=== PATIENT | male | born 1945 | race Caucasian/White ===

== ENCOUNTER 2016-11-08 15:19 | Inpatient (IN) | payer MEDICARE, BC, OTHER ==
[~2016-11-08 15:19] MED LIST: GLYCOPYRROLATE INJ 0.4 MG/2 ML VIAL ONE; KETOROLAC TROMETHAMINE 60 MG/2 ML SDV ONE; LIDOCAINE 2% INJ-PF (20 MG/ML) 10 ML AMPUL ONE; METOCLOPRAMIDE HCL INJ/PF 10 MG/2 ML SDV ONE; ONDANSETRON HCL INJ/PF 4 MG/2 ML SDV ONE; SUCCINYLCHOLINE CHLORIDE INJ 200 MG/10 ML VIAL ONE
[2016-11-08] MEDS ORDERED: OXYCODONE-ACETAMINOPHEN 5-325 MG TABLET PO ONE (15:38)
--- NOTE | 2016-11-08 15:38 | ER Document Report ---
ED Medical Screen (RME) - General Stated Complaint: LEG INJURY Mode of Arrival: Wheelchair Information source: Patient Notes: Patient presents to the emergency department with right lower leg pain. Reports heavy tire fell off the back of his camper and hit his leg. Walked from camper to house to car. Patient has obvious hematoma. Patient is a diabetic. He is not on anticoagulants. He is complaining of severe pain. I have greeted and performed a rapid initial assessment of this patient. A comprehensive ED assessment and evaluation of the patient, analysis of test results and completion of the medical decision making process will be conducted by additional ED providers. TRAVEL OUTSIDE OF THE [place] IN LAST 30 DAYS: No
[2016-11-08 18:17] LABS: ABSOLUTE EOSINOPHILS # (AUTO) 0.1 10^3/uL (0.0-0.6); ABSOLUTE LYMPHOCYTES (AUTO) 1.1 10^3/uL (0.5-4.7); ABSOLUTE MONOCYTES (AUTO) 0.6 10^3/uL (0.1-1.4); BASOPHILS % (AUTO) 0.4 % (0-2); EOSINOPHILS % (AUTO) 0.5 % (0-6); HEMATOCRIT 38.4 % (37.9-51.0); HEMOGLOBIN 13.1 g/dL (13.5-17.0); HGB HCT DIFFERENCE 0.9; LYMPHOCYTES % (AUTO) 10.9 % (13-45); MEAN CORPUSCULAR HEMOGLOBIN 31.7 pg (27.0-33.4); MEAN CORPUSCULAR HGB CONC 34.1 g/dL (32.0-36.0); MEAN CORPUSCULAR VOLUME 93 fl (80-97); MONOCYTES % (AUTO) 5.9 % (3-13); RED BLOOD COUNT 4.12 10^6/uL (4.35-5.55); RED CELL DISTRIBUTION WIDTH 13.8 % (11.5-14.0); SEGMENTED NEUTROPHILS % (AUTO) 82.3 % (42-78); WHITE BLOOD COUNT 9.7 10^3/uL (4.0-10.5)
[2016-11-08 18:20] LABS: PARTIAL THROMBOPLASTIN TIME 29.7 SEC (23.5-35.8); PROTHROMBIN TIME 13.1 SEC (11.4-15.4)
[2016-11-08] MEDS ORDERED: MORPHINE SULFATE 10 MG/ML INJ IV ONE (18:29)
[2016-11-08] MEDS ORDERED: ONDANSETRON HCL INJ/PF 4 MG/2 ML SDV IV ONE (18:29)
[2016-11-08] MEDS ORDERED: ONDANSETRON HCL INJ/PF 4 MG/2 ML SDV ONE (18:30)
[2016-11-08] MEDS ORDERED: MORPHINE SULFATE 10 MG/ML INJ ONE (18:31)
[2016-11-08 18:34] LABS: ALANINE AMINOTRANSFERASE 27 U/L (21-72); ALBUMIN 3.7 g/dL (3.5-5.0); ALKALINE PHOSPHATASE 86 U/L (38-126); ANION GAP 10 (5-19); ASPARTATE AMINO TRANSFERASE 22 U/L (17-59); BILIRUBIN,DIRECT 0.3 mg/dL (0.0-0.4); BILIRUBIN,TOTAL 0.5 mg/dL (0.2-1.3); BLOOD UREA NITROGEN 27 mg/dL (7-20); CALCIUM 9.2 mg/dL (8.4-10.2); CARBON DIOXIDE 27 mmol/L (22-30); CHLORIDE 108 mmol/L (98-107); CREATININE RESULT 1.36 mg/dL (0.52-1.25); GLUCOSE 144 mg/dL (75-110); POTASSIUM 4.1 mmol/L (3.6-5.0); SODIUM 144.7 mmol/L (137-145); TOTAL PROTEIN 6.2 g/dL (6.3-8.2)
[2016-11-08] MEDS ORDERED: BUPIVACAINE HCL 0.5%-EPI 1:200000 INJ/PF 30 ML VIAL ONE (18:53)
--- NOTE | 2016-11-08 19:00 | ER Document Report ---
ED General - General Chief Complaint: Leg Pain Stated Complaint: LEG INJURY Time seen by provider: 18:56 Mode of Arrival: Wheelchair Information source: Patient Notes: This is a 71-year-old man that presents to the emergency room with acute right leg injury at 2 PM today. The patient states he was working on his camper and attired dislodged and came down on his right lower leg. The patient states since that time, his had increasing pain, swelling and blistering to the medial aspect of the leg. TRAVEL OUTSIDE OF THE [place] IN LAST 30 DAYS: No - HPI Onset: Just prior to arrival Onset/Duration: Sudden Quality of pain: Dull Severity: Severe Pain Level: 5 Associated symptoms: denies: Chills, Fever Exacerbated by: Movement, Other Relieved by: Denies - Touching Similar symptoms previously: No Recently seen / treated by doctor: Yes - Related Data Allergies/Adverse Reactions: No Known Allergies Allergy (Unverified 11/08/16 15:36) Past Medical History - General Information source: Patient - Social History Smoking Status: Never Smoker Cigarette use (# per day): No Chew tobacco use (# tins/day): No Frequency of alcohol use: Social Drug Abuse: None Lives with: Family Family History: Reviewed & Not Pertinent Patient has suicidal ideation: No Patient has homicidal ideation: No - Past Medical History Cardiac Medical History: Reports: Hx Hypercholesterolemia, Hx Hypertension, Hx Peripheral Vascular Disease Pulmonary Medical History: Reports: None EENT Medical History: Reports: None Neurological Medical History: Reports: None Endocrine Medical History: Reports: Hx Diabetes Mellitus Type 2 - Insulin requiring Renal/ Medical History: Reports: None. Denies: Hx Peritoneal Dialysis Malignancy Medical History: Reports None GI Medical History: Reports: None Musculoskeltal Medical History: Reports None Skin Medical History: Reports None Psychiatric Medical History: Reports: None Traumatic Medical History: Reports: None Infectious Medical History: Reports: None Surgical Hx: Other - Noncontributory Review of Systems - Review of Systems Constitutional: denies: Chills, Fever EENT: No symptoms reported Cardiovascular: No symptoms reported Respiratory: No symptoms reported Gastrointestinal: No symptoms reported Genitourinary: No symptoms reported Male Genitourinary: No symptoms reported Musculoskeletal: See HPI Skin: No symptoms reported Hematologic/Lymphatic: No symptoms reported Neurological/Psychological: No symptoms reported Physical Exam - Vital signs Vitals: Temp Pulse Resp BP Pulse Ox 97.7 F 87 20 176/100 H 98 11/08/16 15:29 11/08/16 15:29 11/08/16 15:29 11/08/16 15:29 11/08/16 15:29 Notes: Physical exam: GENERAL: 71-year-old man, alert and oriented 3, appears in distress. HEAD: Atraumatic, normocephalic. EYES: Pupils equal round and reactive to light, extraocular movements intact, sclera anicteric, conjunctiva are normal. ENT: TMs normal, nares patent, oropharynx clear without exudates. Moist mucous membranes. NECK: Normal range of motion, supple without lymphadenopathy or JVD. LUNGS: Breath sounds clear to auscultation bilaterally and equal. No wheezes rales or rhonchi. HEART: Regular rate and rhythm without murmurs, rubs or gallops. ABDOMEN: Soft, normoactive bowel sounds. No tenderness to palpation. No guarding, no rebound. No masses appreciated. EXTREMITIES: Patient has marked blistering to the medial aspect of the right calf. The compartments to the right lower extremity are tight. The patient does not have a palpable DP pulse, but I am able to get one via Doppler. The foot is erythematous compared to the nonaffected left side. The patient does have sensation but he says it does not feel the same as the contralateral nonaffected side. The patient does have pain with plantar flexion of the calf and dorsi flexion of the foot. The patient has exquisite tenderness to palpation of the compartments as well as the popliteal area. The right foot has a good palpable DP pulse and normal skin color compared to the affected side. NEUROLOGICAL: Cranial nerves II through XII grossly intact. Normal speech, normal gait. PSYCH: Normal mood, normal affect. SKIN: Warm, Dry, normal turgor, no rashes or lesions noted. - Extremities Left calf in cm: 41 Right calf in cm: 40 Course - Re-evaluation Re-evalutation: Dr. So contacted for concerns for compartment syndrome of the right lower extremity. I've examined patient with Dr. So at the bedside. Plan is to take patient to the OR. - Vital Signs Vital signs: Temp Pulse Resp BP Pulse Ox 98.6 F 73 18 139/61 H 95 11/08/16 21:52 11/08/16 21:52 11/08/16 21:52 11/08/16 21:52 11/08/16 21:52 - Laboratory Result Diagrams: 11/08/16 23:00 11/08/16 17:54 Laboratory results interpreted by me: 11/08/16 11/08/16 11/08/16 17:54 17:54 18:36 RBC 4.12 L Hgb 13.1 L Plt Count 148 L Seg Neutrophils % 82.3 H Lymphocytes % 10.9 L Chloride 108 H BUN 27 H Creatinine 1.36 H Est GFR (Non-Af Amer) 52 L Glucose 144 H POC Glucose 133 H Total Protein 6.2 L Critical Care Note - Critical Care Note Total time excluding time spent on procedures (mins): 60 Discharge - Discharge Clinical Impression: acute compartment syndrome right leg Condition: Stable Disposition: HOME, SELF-CARE Admitting Provider: Dr. So Unit Admitted: Surgical Floor
[2016-11-08] MEDS ORDERED: CEFAZOLIN INJ 1 GM VIAL ONE (19:13)
[2016-11-08] MEDS ORDERED: ACETAMINOPHEN 100 ML IV ONE (19:18)
[2016-11-08] MEDS ORDERED: PROPOFOL INJ 200 MG/20 ML VIAL IV ONE (19:18)
[2016-11-08] MEDS ORDERED: EPHEDRINE SULFATE INJ 50 MG/1 ML AMPULE ONE (19:18)
[2016-11-08] MEDS ORDERED: DEXMEDETOMIDINE INJ 80 MCG/20 ML VIAL IV ONE (19:18)
[2016-11-08] MEDS ORDERED: FENTANYL CITRATE INJ/PF 250 MCG/5 ML AMPULE ONE (19:18)
[2016-11-08] MEDS ORDERED: MIDAZOLAM 2 MG/2 ML INJ ONE (19:18)
[2016-11-08] MEDS ORDERED: MORPHINE SULFATE 10 MG/ML INJ IV PRN (20:05)
[2016-11-08] MEDS ORDERED: MEPERIDINE HCL/PF INJ 25 MG/1 ML DISP.SYRIN IV PRN (20:05)
[2016-11-08] MEDS ORDERED: ONDANSETRON HCL INJ/PF 4 MG/2 ML SDV IV PRN ×3 (20:05→21:15)
[2016-11-08] MEDS ORDERED: FENTANYL CITRATE INJ/PF 100 MCG/2 ML AMPUL IV PRN ×3 (20:05)
[2016-11-08] MEDS ORDERED: DIPHENHYDRAMINE HCL 50 MG/ML VIAL IV PRN (20:05)
[2016-11-08] MEDS ORDERED: PROMETHAZINE HCL INJ 25 MG/1 ML VIAL IV PRN ×2 (20:05)
[2016-11-08] MEDS ORDERED: DEXTROSE 50%-WATER 25 GM/50 ML DISP.SYRIN IV PRN ×2 (21:14)
[2016-11-08] MEDS ORDERED: DEXTROSE 40% GEL 15 GM TUBE PO PRN ×2 (21:14)
[2016-11-08] MEDS ORDERED: GLUCAGON,HUMAN RECOMB 1 MG INJ IM PRN (21:14)
--- NOTE | 2016-11-08 21:42 | Operative Report ---
Operative Report DATE OF SURGERY: 11/08/16 PREOPERATIVE DIAGNOSIS: Right Leg Compartment Syndrome POSTOPERATIVE DIAGNOSIS: Same OPERATION: Right Left Four Compartment Fasciotomy SURGEON: TERESA SANDRESON ANESTHESIA: GA COMPLICATIONS: None ESTIMATED BLOOD LOSS: 100cc PROCEDURE: Indication for above procedure: 71-year-old male who sustained a contusion/crush injury to his right leg. He had a small area of hematoma medially and subglottic took aspirin to decrease the swelling. After taking the aspirin his swelling significantly increased the patient had noticeable elevation of his pain. He was brought to the emergency room at which point he was diagnosed with possible compartment syndrome. I saw evaluated the patient discussed treatment options including operative versus nonoperative intervention. Risks and benefits were explained to the patient he verbalized understanding consented for the procedure. Procedure in detail: Patient was seen and evaluated in the emergency room and emergently brought to the operating room. Right lower extremity was initialized and marked. Received 2 g Ancef IV for bacterial prophylaxis. He was then taken back to the operating placed under general anesthesia. A surgical team debriefing was performed ensuring all instrumentation was available, the surgical procedure was discussed with possible concerns reviewed. The lower extremity was prepped with Betadine and draped in a sterile fashion. A timeout was done identifying correct patient, procedure and extremity everyone in attendance agree with this and verbalized no concerns. Given the risk of bleeding from patient's amount of aspirin combined with the fact patient had a Doppler pulse indicating maintained vascularity I made the decision to proceed with a tourniquet. The lower extremity was elevated and the tourniquet was inflated 3 mmHg. Longitudinal skin incision was made 5cm distal to the fibular head and 5cm proximal to the lateral malleolus blunt dissection was performed including full- thickness skin flaps and the anterior posterior directions until the anterior, lateral and superficial posterior compartments were visualized. The intermuscular septum between the anterior and lateral compartment was identified. Superficial peroneal nerve was identified as it exited the lateral compartment traversing soft tissues anteriorly. The anterior and lateral compartments were then released in their entirety. I then identified the superficial posterior compartment which was released as well. Throughout the entirety the case any peripheral vast suture that was encountered was coagulated with cautery. I then bluntly elevated the lateral compartment of the lateral intermuscular septum, the lateral intermuscular septum was then released from the fibula. I was then able to identify the FHL tendon through the distal aspect of the wound this fascia was entered. The fascia continued we released along the posterior tibia identifying the posterior tibial muscle. The proximal aspect of the wound the common peroneal nerve was identified. As I encountered proximally we soleus was detached from the proximal part of the fibula. Ensuring complete release of the posterior compartment. Once released the compartments significantly softened. The tourniquet was then deflated. Any peripheral vascular sutures carefully coagulated cautery or 3-0 ties until the wound was dry. There is no evidence of nonviable tissue. The wound was then copiously irrigated with normal saline. The medial blister was carefully unroofed. The medial wound was dressed with Xeroform and the lateral incision with wet-to-dry dressings. A loosely applied Kerlix, soft roll and Aj bandage was then placed. Using Doppler I confirmed dorsalis pedis pulse. Patient's capillary refill improved. Sponge counts, instrument counts, needle counts counts were correct. Patient was then awoken from anesthesia. Transferred from the operating room table to the operating room stretcher. There was no intraoperative complications patient tolerated procedure well stable to PACU. Postoperative plan: Patient will be admitted for inpatient observation. Plan will be to obtain a wound VAC was placed on the floor. Return to the operating room in approximately 48-72 hours for repeat excisional debridement. Anticoagulation will be held postoperative given bleeding risk.
--- NOTE | 2016-11-08 21:45 | PDOC H&P ---
History of Present Illness Admission Date/PCP: 11/08/16 19:10 NAHOMY BERNSTEIN MD Patient complains of: Right leg pain History of Present Illness: JODI VAN is a 71 year old male This is a 71-year-old man that presents to the emergency room with acute right leg injury at 2 PM today. The patient states he was working on his camper and tried to dislodge a tire and it came down on his right lower leg. Patient took two 325 mg aspirin noticed the swelling worsened. While in the emergency room swelling pain and blistering is worsened. Current pain is 10/10. Has noticed numbness and tingling in his great toe. Denies history of other blood thinners. Past Medical History Endocrine Medical History: Reports: Diabetes Mellitus Type 2 Past Surgical History Past Surgical History: Reports: Cholecystectomy - 2013, Gastric Bypass Surgery, Knee Replacement Social History Smoking Status: Never Smoker Family History Parental Family History Reviewed: No Children Family History Reviewed: No Sibling(s) Family History Reviewed.: No Medication/Allergy Allergies/Adverse Reactions: No Known Allergies Allergy (Unverified 11/08/16 15:36) Review of Systems Constitutional: ABSENT: chills, fever(s), headache(s), weight gain, weight loss Eyes: ABSENT: visual disturbances Ears: ABSENT: hearing changes Cardiovascular: ABSENT: chest pain, dyspnea on exertion, edema, orthropnea, palpitations Respiratory: ABSENT: cough, hemoptysis Gastrointestinal: ABSENT: abdominal pain, constipation, diarrhea, hematemesis, hematochezia, nausea, vomiting Genitourinary: ABSENT: dysuria, hematuria Musculoskeletal: PRESENT: as per HPI Integumentary: ABSENT: rash, wounds Neurological: PRESENT: numbness, paresthesias. ABSENT: abnormal gait, abnormal speech, confusion, dizziness, focal weakness, syncope Psychiatric: ABSENT: anxiety, depression, homidical ideation, suicidal ideation Endocrine: ABSENT: cold intolerance, heat intolerance, menstrual abnormalities, polydipsia, polyuria Hematologic/Lymphatic: ABSENT: easy bleeding, easy bruising, lymphadenopathy Physical Exam Vital Signs: Temp Pulse Resp BP Pulse Ox 97.8 F 89 18 171/89 H 98 11/08/16 18:47 11/08/16 18:47 11/08/16 18:47 11/08/16 18:47 11/08/16 18:47 General appearance: PRESENT: no acute distress, well-developed, well-nourished Head exam: PRESENT: atraumatic, normocephalic Eye exam: PRESENT: conjunctiva pink, EOMI, PERRLA. ABSENT: scleral icterus Ear exam: PRESENT: normal external ear exam Mouth exam: PRESENT: moist, tongue midline Neck exam: PRESENT: full ROM. ABSENT: carotid bruit, JVD, lymphadenopathy, thyromegaly Respiratory exam: PRESENT: unlabored Cardiovascular exam: PRESENT: RRR. ABSENT: diastolic murmur, rubs, systolic murmur Pulses: PRESENT: other - Dopplered pulse Right +2 Pulse Left Vascular exam: PRESENT: normal capillary refill GI/Abdominal exam: PRESENT: normal bowel sounds, soft. ABSENT: distended, guarding, mass, organolmegaly, rebound, tenderness Rectal exam: PRESENT: deferred Musculoskeletal exam: PRESENT: other - Right lower extremity: Tense compartments. Pain with passive stretch. Paresthesias along the dorsum of the foot. Cap refill less than 2 seconds however discoloration along the great toe. Multiloculated superficial skin blisters along the medial aspect of the leg approximately 12 cm in length and 15 cm in width. No erythema. Compartment pressure checks performed anterior compartment 83, lateral compartment 87, superficial posterior compartment 90 did not check deep posterior compartment due to limited access. Pulse weak with Doppler not palpable Neurological exam: PRESENT: alert, awake, oriented to person, oriented to place , oriented to time, oriented to situation, CN II-XII grossly intact. ABSENT: motor sensory deficit Psychiatric exam: PRESENT: appropriate affect, normal mood. ABSENT: homicidal ideation, suicidal ideation Skin exam: PRESENT: dry, intact, warm. ABSENT: cyanosis, rash Results Impressions: Tibia/Fibula X-Ray 11/08/16 15:33 IMPRESSION: NEGATIVE STUDY OF THE RIGHT TIBIA AND FIBULA. NO RADIOGRAPHIC EVIDENCE OF ACUTE INJURY. Assessment & Plan - Diagnosis (1) Compartment syndrome of right lower extremity Qualifiers: Encounter type: initial encounter Qualified Code(s): T79.A21A - Traumatic compartment syndrome of right lower extremity, initial encounter Is this a current diagnosis for this admission?: YesPlan: Patient's injury is likely secondary to crush/contusion along with his anticoagulation. At this point he has compartment syndrome which is deemed a surgical emergency. Patient will be taken to the operative room and a merchant fashion. Risks and benefits of the surgical procedure have been explained the patient patient is at high risk of infection given his blisters, diabetes and age. I also discussed the possibility of limb loss, decreased amatory status, neurovascular injury and other possible sequelae/complications of compartment syndrome. Patient has verbalized understanding and consented for the procedure.
[2016-11-08 23:20] LABS: HEMOGLOBIN 11.1 g/dL (13.5-17.0); HGB HCT DIFFERENCE 0.3; MEAN CORPUSCULAR HEMOGLOBIN 31.4 pg (27.0-33.4); MEAN CORPUSCULAR HGB CONC 33.5 g/dL (32.0-36.0); MEAN CORPUSCULAR VOLUME 94 fl (80-97); RED BLOOD COUNT 3.52 10^6/uL (4.35-5.55); RED CELL DISTRIBUTION WIDTH 13.7 % (11.5-14.0); WHITE BLOOD COUNT 13.7 10^3/uL (4.0-10.5)
[2016-11-09] MEDS: CEFAZOLIN INJ 1 GM VIAL IV PRN ×2 (00:34→05:48)
[2016-11-09] MEDS: CEFAZOLIN 2 GM/D5W RTU 2 GM/50 ML RTUPB IV SCH ×4 (00:47→18:10)
[2016-11-09] MEDS: INSULIN LISPRO 100 UNIT/ML 3 ML VIAL SUBCUT PRN ×2 (01:14→22:50)
[2016-11-09] MEDS: MORPHINE SULFATE 10 MG/ML INJ IV PRN (01:14)
[2016-11-09 07:54] LABS: ABSOLUTE EOSINOPHILS # (AUTO) 0.1 10^3/uL (0.0-0.6); ABSOLUTE LYMPHOCYTES (AUTO) 1.7 10^3/uL (0.5-4.7); ABSOLUTE MONOCYTES (AUTO) 0.9 10^3/uL (0.1-1.4); ABSOLUTE NEUT (AUTO) 6.4 10^3/uL (1.7-8.2); BASOPHILS % (AUTO) 0.4 % (0-2); EOSINOPHILS % (AUTO) 0.8 % (0-6); HEMATOCRIT 29.4 % (37.9-51.0); HEMOGLOBIN 10.2 g/dL (13.5-17.0); HGB HCT DIFFERENCE 1.2; LYMPHOCYTES % (AUTO) 18.7 % (13-45); MEAN CORPUSCULAR HEMOGLOBIN 32.4 pg (27.0-33.4); MEAN CORPUSCULAR HGB CONC 34.5 g/dL (32.0-36.0); MEAN CORPUSCULAR VOLUME 94 fl (80-97); MONOCYTES % (AUTO) 10.3 % (3-13); RED BLOOD COUNT 3.14 10^6/uL (4.35-5.55); RED CELL DISTRIBUTION WIDTH 13.7 % (11.5-14.0); SEGMENTED NEUTROPHILS % (AUTO) 69.8 % (42-78); WHITE BLOOD COUNT 9.2 10^3/uL (4.0-10.5)
--- NOTE | 2016-11-09 07:58 | PDOC CONSULTATION ---
Consultation Consult Date: 11/09/16 Attending physician:: TERESA SANDERSON Consult reason:: diabetic management History of Present Illness Admission Date/PCP: 11/08/16 21:10 NAHOMY BERNSTEIN MD Patient complains of: rt leg pain History of Present Illness: JODI VAN is a 71 year old male who presents to the emergency room with acute right leg injury at 2 PM today. The patient states he was working on his camper and tried to dislodge a tire and it came down on his right lower leg. Patient took two 325 mg aspirin noticed the swelling worsened. While in the emergency room swelling pain and blistering worsened. Current pain is 10/10. Has noticed numbness and tingling in his great toe. Denies history of other blood thinners. 71-year-old obese male, status post right leg fasciotomy for compartment syndrome, as noted above. Hospitalist service has been consulted to manage his medical problems, in particular his diabetes mellitus. Patient has been discussed with orthopedist who initially managed the patient. Laboratory results are listed in [employer] and are reviewed. X-ray summary results are listed below, with full report(s) reviewed. . Social history/personal habits: . Has children. Retired. No use tobacco or illicit drugs. Social alcohol intake. Allergies/adverse reactions NKDA. Home medications Home medications initially autopopulated into [employer] may not accurately reflect patient's true medications, dosages, and/or frequencies. REVIEW OF SYSTEMS: Constitutional: No fever or chills. Eyes: Wears glasses ENT: No swallowing problems or complaints. Partial hearing loss. Pulmonary: No current complaints. Cardiovascular: No current complaints, including chest pain. Gastrointestinal: No current complaints, including nausea or vomiting. Skin: No current complaints, including rashes. Hematologic: Easy bruising. Neurologic: No current complaints, including numbness or tingling. Musculoskeletal: See history and present illness. Joint pain from arthritis. Psychiatric: No current complaints, including anxiety or depression. Endocrine: No current complaints, including polyuria. Genitourinary: No current complaints, including dysuria. PHYSICAL EXAMINATION: 5 feet 7 inches tall. 111.7 kg. BMI 38.6 kg/m.Temperature 97.9. Pulse 97 regular. Blood pressure 152/54. Respirations are 15 and unlabored. 98% on room air, with nasal CPAP. Obese otherwise well-developed male. Pleasant awake alert and cooperative. Mildly anxious. No agitation. is present at his side; patient approves. Skin is warm and dry. No grossly obvious evidence of rash in areas of skin examined. No subcutaneous nodules palpated. ENT: Mildly hard of hearing to normal conversation. Tongue midline on protrusion pink and slightly tacky. Exam slightly limited by CPAP mask with attaching straps. Eyes: No scleral icterus. Pupils equal and reactive to light at 4 mm. [place] conjunctivae. No raccoon eyes. Neck is supple and nontender to gentle active range of motion and palpation. Midline trachea. No palpable thyroid nodule mass enlargement or tenderness. Lymphatic: No palpable cervical or clavicular nodes. Neck and lymphatic exams limited by patient body habitus. Psychiatric: Reasonable insight into acute and chronic medical issues. Oriented to time location and why here. Lungs: Auscultation reveals clear and equal breath sounds bilaterally. No use of accessory respiratory muscles. Cardiovascular: Heart regular rate and rhythm, without gallop murmur or rub. No abdominal aortic bruits. No left ankle or pedal edema. Faintly palpable left dorsalis pedis pulse. Difficult to evaluate for carotid bruit due to airway sounds from CPAP device. Right lower extremity exam deferred. Abdomen: soft, obese, nontender with positive bowel sounds. Unable to adequately evaluate abdomen for masses or organomegaly due to Body habitus. Extremities: Left foot warm and dry. No left calf tenderness to compression. No grossly obvious visual evidence of left calf swelling. Gentle manipulation of left lower extremity fails to reveal any obvious evidence of injury or instability to knee hip or ankle. Neurologic: Moves upper extremities grossly normally. Left Patellar reflex absent. Absent left Babinski. Light touch is intact at left foot. Dorsiflexion and plantarflexion of left foot 5 / 5. Past Medical History Cardiac Medical History: Reports: Hyperlipidema, Hypertension, Peripheral Vascular Disease Denies: Congestive Heart Failure, DVT, Myocardial Infarction, Pulmonary Embolism Pulmonary Medical History: Reports: Sleep Apnea Denies: Asthma, Chronic Obstructive Pulmonary Disease (COPD) EENT Medical History: Reports: Eyes - Glasses, Ears - Partial hearing loss Denies: Throat Neurological Medical History: Denies: Hemorrhagic CVA, Ischemic CVA, Seizures Endocrine Medical History: Reports: Diabetes Mellitus Type 1 Denies: Hyperthyroidism, Hypothyroidism Renal/ Medical History: Reports: Other - Distant history of nephrolithiasis GI Medical History: Denies: Cirrhosis, Gastroesophageal Reflux Disease, Hepatitis, Peptic Ulcer Disease Musculoskeltal Medical History: Reports: Arthritis Skin Medical History: Reports: None Psychiatric Medical History: Reports: None Denies: Alcohol Dependency, Depression, General Anxiety Disorder, Substance Abuse, Tobacco Dependency Traumatic Medical History: Reports: None Hematology: Reports: Other - Easy bruising Infectious Medical History: Denies: Hepatitis B, Hepatitis C Past Surgical History Past Surgical History: Reports: Cholecystectomy - 2013, Gastric Bypass Surgery, Knee Replacement, Orthopedic Surgery - Right lower extremity fasciotomy Social History Information Source: Patient, [facility] Records Lives with: Spouse/Significant other Smoking Status: Never Smoker Frequency of Alcohol Use: Social Hx Recreational Drug Use: No Drugs: None Hx Prescription Drug Abuse: No - Advance Directive Resuscitation Status: Full Code Surrogate healthcare decision maker:: Family History Family History: Reviewed & Not Pertinent Parental Family History Reviewed: Yes Children Family History Reviewed: Yes Sibling(s) Family History Reviewed.: Yes Medication/Allergy Home Medications: RX: Acetaminophen [Tylenol] 650 mg PO QHS 11/09/16 RX: Atorvastatin Calcium 10 mg PO DAILY 11/09/16 RX: Calcium Carbonate [Calcium] 600 mg PO DAILY 11/09/16 RX: Cyanocobalamin (Vitamin B-12) [Vitamin B-12 100 mcg Tablet] 100 mcg PO DAILY 11/09/16 RX: Cyclobenzaprine HCl [Flexeril 5 mg Tablet] 5 mg PO TID 11/09/16 RX: Docusate Sodium 100 mg PO BID 11/09/16 RX: Ferrous Sulfate [Iron] 325 mg PO BID 11/09/16 RX: Furosemide [Lasix] 40 mg PO BID@08,20 11/09/16 RX: Insulin Glargine,Hum.rec.anlog [Lantus] 30 units SQ QHS 11/09/16 RX: Insulin Lispro [Humalog Insulin (Lispro) 100 unit/mL] 0 unit SUBCUT DAILY@ 17 11/09/16 RX: Lisinopril [Prinivil 2.5 mg Tablet] 2.5 mg PO DAILY 11/09/16 RX: Losartan Potassium [Cozaar 25 mg Tablet] 25 mg PO DAILY 11/09/16 RX: Multivitamin [Multivitamins] 1 each PO DAILY 11/09/16 RX: Sildenafil Citrate [Viagra] 100 mg PO ASDIR PRN 11/09/16 RX: Temazepam [Restoril 7.5 mg Capsule] 7.5 mg PO QHS 11/09/16 RX: Testosterone [Androderm] 1 each TD DAILY 11/09/16 RX: Vitamin E (Dl, Acetate) [Vitamin E] 400 unit PO DAILY 11/09/16 RX: Clindamycin HCl [Cleocin HCl] 300 mg PO TID #30 capsule 11/10/16 RX: Mometasone Furoate [Nasonex] 17 gm NS DAILY 11/10/16 RX: Oxycodone HCl/Acetaminophen [Percocet 5-325 mg Tablet] 1 tab PO Q6HP PRN # 35 tablet 11/10/16 Allergies/Adverse Reactions: No Known Allergies Allergy (Unverified 11/08/16 15:36) Physical Exam Vital Signs: Temp Pulse Resp BP Pulse Ox 97.9 F 97 15 152/54 H 98 11/09/16 03:10 11/09/16 03:10 11/09/16 03:10 11/09/16 03:10 11/09/16 03:10 Intake & Output 11/08/16 11/09/16 11/10/16 00:59 00:59 00:59 Intake Total 575 Balance 575 Results Laboratory Results: 11/08/16 23:00 11/08/16 23:00 WBC 13.7 H RBC 3.52 L Hgb 11.1 L Hct 33.0 L MCV 94 MCH 31.4 MCHC 33.5 RDW 13.7 Plt Count 138 L Impressions: Tibia/Fibula X-Ray 11/08/16 15:33 IMPRESSION: NEGATIVE STUDY OF THE RIGHT TIBIA AND FIBULA. NO RADIOGRAPHIC EVIDENCE OF ACUTE INJURY. Assessment & Plan - Diagnosis (1) Diabetes mellitus type 1 Qualifiers: Diabetes mellitus complication status: without complication Qualified Code(s): E10.9 - Type 1 diabetes mellitus without complications Is this a current diagnosis for this admission?: YesPlan: Diabetic cardiac diet. Accu-Cheks with appropriate sliding scale coverage. Resume home medications as appropriate once these have been determined and reviewed. (2) HLD (hyperlipidemia) Qualifiers: Hyperlipidemia type: unspecified Qualified Code(s): E78.5 - Hyperlipidemia, unspecified Is this a current diagnosis for this admission?: YesPlan: Resume home medications as appropriate once these have been determined and reviewed. (3) HTN (hypertension) Qualifiers: Hypertension type: essential hypertension Qualified Code(s): I10 - Essential (primary) hypertension Is this a current diagnosis for this admission?: YesPlan: Resume home medications as appropriate once these have been determined and reviewed. (4) History of fasciotomy Is this a current diagnosis for this admission?: YesPlan: Orthopedic management. DVT prophylaxis per Orthopedics. (5) CHRISTIANE (obstructive sleep apnea) Is this a current diagnosis for this admission?: YesPlan: Continue home nasal CPAP. - Inpatient Certification Based on my medical assessment, after consideration of the patient's comorbidities, presenting symptoms, or acuity I expect that the services needed warrant INPATIENT care.: Yes I certify that my determination is in accordance with my understanding of Medicare's requirements for reasonable and necessary INPATIENT services [42 CFR 412.3e].: Yes Medical Necessity: Need for Pain Control, Need for Surgery, Risk of Complication if Not Cared For in Hospital, Risk of Diagnosis Which Will Require Inpatient Eval/Care/Monitoring
--- NOTE | 2016-11-09 08:16 | PDOC PROGRESS REPORT ---
Subjective Progress Note for:: 11/09/16 Subjective:: Patient lying in bed comfortably. No issues overnight. Pain controlled. Denies chest pain or shortness of breath. Physical Exam Vital Signs: Temp Pulse Resp BP Pulse Ox 97.9 F 74 16 161/62 H 99 11/09/16 07:49 11/09/16 07:49 11/09/16 07:49 11/09/16 07:49 11/09/16 07:49 Intake & Output 11/08/16 11/09/16 11/10/16 06:59 06:59 06:59 Intake Total 575 Balance 575 Musculoskeletal exam: PRESENT: other - Right lower extremity: Serosanguineous drainage from the wound. Patient has brisk capillary refill. Intact plantar flexion/dorsiflexion. No sensory deficits. No pain with passive stretch. Compartments soft and compressible. Dorsalis pedis pulse faintly palpable 1+ Results Laboratory Results: 11/09/16 07:45 11/08/16 11/09/16 23:00 07:45 WBC 13.7 H 9.2 RBC 3.52 L 3.14 L Hgb 11.1 L 10.2 L Hct 33.0 L 29.4 L MCV 94 94 MCH 31.4 32.4 MCHC 33.5 34.5 RDW 13.7 13.7 Plt Count 138 L 124 L Seg Neutrophils % 69.8 Lymphocytes % 18.7 Monocytes % 10.3 Eosinophils % 0.8 Basophils % 0.4 Absolute Neutrophils 6.4 Absolute Lymphocytes 1.7 Absolute Monocytes 0.9 Absolute Eosinophils 0.1 Absolute Basophils 0.0 Impressions: Tibia/Fibula X-Ray 11/08/16 15:33 IMPRESSION: NEGATIVE STUDY OF THE RIGHT TIBIA AND FIBULA. NO RADIOGRAPHIC EVIDENCE OF ACUTE INJURY. Assessment & Plan - Diagnosis (1) Compartment syndrome of right lower extremity Qualifiers: Encounter type: initial encounter Qualified Code(s): T79.A21A - Traumatic compartment syndrome of right lower extremity, initial encounter Is this a current diagnosis for this admission?: YesPlan: Patient is doing well status post fasciotomy of the right leg. Plan today we will see proceed with wet-to-dry dressing changes. We will return the operating room tomorrow for repeat irrigation debridement and possible closure or placement of wound VAC. We will continue to hold patient's pharmacologic DVT prophylaxis given bleeding risk. I have discussed the severity of patient' s injury including loss of limb especially given his history of diabetes. He will continue on IV antibiotics.
[2016-11-09 08:19] LABS: ANION GAP 9 (5-19); BLOOD UREA NITROGEN 30 mg/dL (7-20); CALCIUM 8.2 mg/dL (8.4-10.2); CARBON DIOXIDE 26 mmol/L (22-30); CHLORIDE 107 mmol/L (98-107); CREATININE RESULT 1.55 mg/dL (0.52-1.25); GLUCOSE 140 mg/dL (75-110); POTASSIUM 4.6 mmol/L (3.6-5.0); SODIUM 142.4 mmol/L (137-145)
[2016-11-09] MEDS: OXYCODONE-ACETAMINOPHEN 5-325 MG TABLET PO PRN (11:16)
--- NOTE | 2016-11-09 15:23 | Physician Advisory Note ---
Physician Advisor ProgressNote .: Pursuant to the plan for [facility], I have reviewed the medical record for this patient. Physician Advisor Statement: Possible documentation opportunities if attending agrees: 1. "Anemia of acute blood loss due to injury" 2. "CHRISTIANE w/CPAP use" 3. ? -"developing Acute Kidney Injury, from ___[trauma? ATN? acute medullary necrosis? cortical necrosis? rhabdomyolysis, ...] , likely due to ____" As always, if concerned about any unstable VS or abnormal labs, please comment on them & note what doing about them, & please document each day the potential clinical problems you are concerned could occur if pt not kept in hospital for tx at this time. Status: Pt w/acute compartment synd 4 compartments RLE - requiring fasciotomy 4 compartments emergently, w/repeat surg for irrig/debridement, possible closure vs wound vac 11/10. High risk infxn due to DM, blistering, age. Had taken ASA shortly after injury. Had been on Mobic prn as well. Needing IV abx, + IV pain relief prn. H/H dropping since arrival due to injury. thrombocytopenia worsened on day 2. Cr worsening on day 2. Tx in inpatient hospital setting medically reasonable & necessary to protect pt' s health, safety, & medical condition. HIgh risk for loss of limb without prompt care, close monitoring, ongoing tx. Appropriate for INpt status. Thanks for your help with documentation accuracy/specificity improvement! Dimple Thompson MD [facility] Physician Advisor, Fellow of Hospital Medicine
--- NOTE | 2016-11-09 17:54 | PDOC PROGRESS REPORT ---
Subjective Progress Note for:: 11/09/16 Subjective:: The patient was admitted with a right leg compartment syndrome which she suffered after a tire fell on his leg. He is now status post fasciotomy by Dr. So. He is scheduled for further debridement and possible partial closure on 11/10/2016. The hospitalist service is seeing the patient in consultation for medical management. Physical Exam Vital Signs: Temp Pulse Resp BP Pulse Ox 98.6 F 70 18 153/62 H 98 11/09/16 13:00 11/09/16 13:00 11/09/16 13:00 11/09/16 13:00 11/09/16 13:00 Intake & Output 11/08/16 11/09/16 11/10/16 06:59 06:59 06:59 Intake Total 575 Balance 575 General appearance: PRESENT: no acute distress, cooperative, well-developed, well-nourished Head exam: PRESENT: atraumatic, normocephalic Eye exam: PRESENT: conjunctiva pink, EOMI, PERRLA. ABSENT: scleral icterus Ear exam: PRESENT: normal external ear exam Mouth exam: PRESENT: moist, tongue midline Neck exam: ABSENT: carotid bruit, JVD, lymphadenopathy, thyromegaly Respiratory exam: PRESENT: clear to auscultation sb. ABSENT: rales, rhonchi, wheezes Cardiovascular exam: PRESENT: RRR. ABSENT: diastolic murmur, rubs, systolic murmur Pulses: PRESENT: normal dorsalis pedis pul Vascular exam: PRESENT: normal capillary refill GI/Abdominal exam: PRESENT: normal bowel sounds, soft. ABSENT: distended, guarding, mass, organolmegaly, rebound, tenderness Rectal exam: PRESENT: deferred Extremities exam: PRESENT: other - Right LE s/p fasciotomy. Left LE with changes of DJD, no edema, adequate circulation. Neurological exam: PRESENT: alert, awake, oriented to person, oriented to place , oriented to time, oriented to situation, CN II-XII grossly intact. ABSENT: motor sensory deficit Psychiatric exam: PRESENT: appropriate affect, normal mood. ABSENT: homicidal ideation, suicidal ideation Skin exam: PRESENT: dry, intact, warm, other - Right leg post op, with dressings.. ABSENT: cyanosis, rash Results Laboratory Results: 11/09/16 07:45 11/09/16 07:45 11/08/16 11/09/16 11/09/16 23:00 07:45 07:45 WBC 13.7 H 9.2 RBC 3.52 L 3.14 L Hgb 11.1 L 10.2 L Hct 33.0 L 29.4 L MCV 94 94 MCH 31.4 32.4 MCHC 33.5 34.5 RDW 13.7 13.7 Plt Count 138 L 124 L Seg Neutrophils % 69.8 Lymphocytes % 18.7 Monocytes % 10.3 Eosinophils % 0.8 Basophils % 0.4 Absolute Neutrophils 6.4 Absolute Lymphocytes 1.7 Absolute Monocytes 0.9 Absolute Eosinophils 0.1 Absolute Basophils 0.0 Sodium 142.4 Potassium 4.6 Chloride 107 Carbon Dioxide 26 Anion Gap 9 BUN 30 H Creatinine 1.55 H Est GFR ( Amer) 54 L Est GFR (Non-Af Amer) 44 L Glucose 140 H Calcium 8.2 L Impressions: Tibia/Fibula X-Ray 11/08/16 15:33 IMPRESSION: NEGATIVE STUDY OF THE RIGHT TIBIA AND FIBULA. NO RADIOGRAPHIC EVIDENCE OF ACUTE INJURY. Assessment & Plan - Diagnosis (1) Compartment syndrome of right lower extremity Qualifiers: Encounter type: initial encounter Qualified Code(s): T79.A21A - Traumatic compartment syndrome of right lower extremity, initial encounter Is this a current diagnosis for this admission?: YesPlan: The patient is status post fasciotomy as above. He is to have further debridement and possible partial wound closure on 11/10/2016. (2) History of fasciotomy Is this a current diagnosis for this admission?: Yes (3) Blood loss anemia Is this a current diagnosis for this admission?: YesPlan: Initial hemoglobin of 13.1 and has fallen to 10.2. Will track. (4) Diabetes mellitus type 1 Qualifiers: Diabetes mellitus complication status: without complication Qualified Code(s): E10.9 - Type 1 diabetes mellitus without complications Is this a current diagnosis for this admission?: YesPlan: This is probably insulin using type II diabetes. The patient had morbid obesity of about 350 pounds in the past. He had a gastric bypass procedure after which he lost over 100 pounds. With that, his Lantus dose reduced from 70 to 30 units daily. He states that his glucose has been under good control. We will check an A1c. (5) HTN (hypertension) Qualifiers: Hypertension type: essential hypertension Qualified Code(s): I10 - Essential (primary) hypertension Is this a current diagnosis for this admission?: YesPlan: We'll monitor and adjust Rx as needed. (6) HLD (hyperlipidemia) Qualifiers: Hyperlipidemia type: unspecified Qualified Code(s): E78.5 - Hyperlipidemia, unspecified Is this a current diagnosis for this admission?: Yes (7) CHRISTIANE (obstructive sleep apnea) Is this a current diagnosis for this admission?: YesPlan: He uses home CPAP.
[2016-11-09] MEDS ORDERED: (PENDING PHARMACY ID) (Sildenafil Citrate [Viagra] 100 MG) PO PRN (20:02)
[2016-11-09] MEDS ORDERED: (PENDING PHARMACY ID) (Diclofenac Sodium [Voltaren] 100 GM) TP PRN (20:02)
[2016-11-09] MEDS: ACETAMINOPHEN 325 MG TABLET PO SCH (22:49)
[2016-11-09] MEDS: TEMAZEPAM 7.5 MG CAPSULE PO SCH (22:49)
[2016-11-09] MEDS: INSULIN GLARGINE,HUM.REC.ANLOG 1,000 UNIT/10 ML UNIT SUBCUT SCH (22:49)
[2016-11-10] MEDS: CEFAZOLIN 2 GM/D5W RTU 2 GM/50 ML RTUPB IV SCH ×4 (00:44→20:24)
[2016-11-10 05:02] LABS: ABSOLUTE EOSINOPHILS # (AUTO) 0.2 10^3/uL (0.0-0.6); ABSOLUTE LYMPHOCYTES (AUTO) 1.5 10^3/uL (0.5-4.7); ABSOLUTE MONOCYTES (AUTO) 0.7 10^3/uL (0.1-1.4); ABSOLUTE NEUT (AUTO) 4.8 10^3/uL (1.7-8.2); BASOPHILS % (AUTO) 0.4 % (0-2); EOSINOPHILS % (AUTO) 3.1 % (0-6); HEMATOCRIT 28.8 % (37.9-51.0); HEMOGLOBIN 9.8 g/dL (13.5-17.0); HGB HCT DIFFERENCE 0.6; LYMPHOCYTES % (AUTO) 20.9 % (13-45); MEAN CORPUSCULAR HEMOGLOBIN 31.9 pg (27.0-33.4); MEAN CORPUSCULAR HGB CONC 33.9 g/dL (32.0-36.0); MEAN CORPUSCULAR VOLUME 94 fl (80-97); MONOCYTES % (AUTO) 10.1 % (3-13); RED BLOOD COUNT 3.06 10^6/uL (4.35-5.55); RED CELL DISTRIBUTION WIDTH 13.8 % (11.5-14.0); SEGMENTED NEUTROPHILS % (AUTO) 65.5 % (42-78); WHITE BLOOD COUNT 7.4 10^3/uL (4.0-10.5)
[2016-11-10 05:30] LABS: ANION GAP 10 (5-19); BLOOD UREA NITROGEN 27 mg/dL (7-20); CALCIUM 8.1 mg/dL (8.4-10.2); CARBON DIOXIDE 26 mmol/L (22-30); CHLORIDE 107 mmol/L (98-107); CREATININE RESULT 1.46 mg/dL (0.52-1.25); GLUCOSE 172 mg/dL (75-110); POTASSIUM 4.5 mmol/L (3.6-5.0); SODIUM 142.5 mmol/L (137-145)
[2016-11-10] MEDS ORDERED: FUROSEMIDE 40 MG TABLET PO SCH (08:00)
[2016-11-10] MEDS ORDERED: RINGERS SOLUTION,LACTATED 1,000 ML IV SCH (08:45)
[2016-11-10] MEDS ORDERED: POLYETHYLENE GLYCOL 3350 POWDER 17 GM/1 PACKET PO PRN (08:53)
[2016-11-10] MEDS: LOSARTAN POTASSIUM 25 MG TABLET PO SCH (09:13)
[2016-11-10] MEDS ORDERED: RINGERS SOLUTION,LACTATED 1,000 ML IV PRN (09:25)
[2016-11-10] MEDS ORDERED: TESTOSTERONE TD SCH (10:00)
[2016-11-10] MEDS ORDERED: (PENDING PHARMACY ID) (Cyclobenzaprine Hcl [Flexeril 5 Mg Tablet] 5 MG) PO SCH (10:00)
[2016-11-10] MEDS ORDERED: LISINOPRIL 5 MG TABLET PO SCH (10:00)
[2016-11-10] MEDS ORDERED: (PENDING PHARMACY ID) (Lisinopril [Prinivil 2.5 Mg Tablet] 2.5 MG) PO SCH (10:00)
[2016-11-10] MEDS ORDERED: VITAMIN E 400 UNIT PO SCH (10:00)
[2016-11-10] MEDS ORDERED: CHOLECALCIFEROL (D3) 400 UNIT TABLET PO SCH (10:00)
[2016-11-10] MEDS ORDERED: VITAMIN E (DL, ACETATE) 400 UNIT CAPSULE PO SCH (10:00)
[2016-11-10] MEDS ORDERED: (PENDING PHARMACY ID) (Cyanocobalamin (Vitamin B-12) [Vitamin B-12 100 Mcg Tablet] 100 MCG PO SCH (10:00)
[2016-11-10] MEDS ORDERED: MELOXICAM 15 MG TABLET PO SCH (10:00)
[2016-11-10] MEDS ORDERED: (PENDING PHARMACY ID) (Calcium Carbonate [Calcium] 600 MG) PO SCH (10:00)
[2016-11-10] MEDS: DIPHENHYDRAMINE HCL 25 MG CAPSULE PO PRN (11:20)
[2016-11-10] MEDS: CALCIUM CARBONATE 500 MG TABLET PO SCH (11:27)
[2016-11-10] MEDS: FERROUS SULFATE 325 MG TABLET PO SCH ×2 (11:27→20:24)
[2016-11-10] MEDS: MULTIVITAMIN TABLET PO SCH (11:27)
[2016-11-10] MEDS: ATORVASTATIN CALCIUM 10 MG TABLET PO SCH (11:27)
[2016-11-10] MEDS: CYCLOBENZAPRINE HCL 10 MG TABLET PO SCH ×3 (11:27→20:24)
[2016-11-10] MEDS: DOCUSATE SODIUM 100 MG CAPSULE PO SCH ×2 (11:27→20:24)
[2016-11-10] MEDS ORDERED: NORMAL SALINE 1000 ML 1,000 ML IV PRN ×2 (13:03→16:57)
--- NOTE | 2016-11-10 13:22 | PDOC PROGRESS REPORT ---
Subjective Progress Note for:: 11/10/16 Subjective:: Patient seen and evaluated this morning on rounds. States pain has been controlled. Only complaint is some constipation. Denies numbness or tingling. Denies fever or chills. Physical Exam Vital Signs: Temp Pulse Resp BP Pulse Ox 98.3 F 82 16 181/83 H 98 11/10/16 13:15 11/10/16 13:15 11/10/16 13:15 11/10/16 13:15 11/10/16 13:15 Intake & Output 11/09/16 11/10/16 11/11/16 06:59 06:59 06:59 Intake Total 575 1360 Output Total 1400 Balance 575 -40 Musculoskeletal exam: PRESENT: other - Right lower extremity: Dressing clean/dry /intact. Intact plantar flexion/dorsiflexion. No sensory deficits. Cap refill brisk less than 2 seconds. Dorsalis pedis pulse palpable 1/4. No pain with passive stretch. Compartments soft and compressible no sign of compartment syndrome. Results Laboratory Results: 11/10/16 04:27 11/10/16 04:27 11/10/16 11/10/16 04:27 04:27 WBC 7.4 RBC 3.06 L Hgb 9.8 L Hct 28.8 L MCV 94 MCH 31.9 MCHC 33.9 RDW 13.8 Plt Count 119 L Seg Neutrophils % 65.5 Lymphocytes % 20.9 Monocytes % 10.1 Eosinophils % 3.1 Basophils % 0.4 Absolute Neutrophils 4.8 Absolute Lymphocytes 1.5 Absolute Monocytes 0.7 Absolute Eosinophils 0.2 Absolute Basophils 0.0 Sodium 142.5 Potassium 4.5 Chloride 107 Carbon Dioxide 26 Anion Gap 10 BUN 27 H Creatinine 1.46 H Est GFR ( Amer) 57 L Est GFR (Non-Af Amer) 47 L Glucose 172 H Calcium 8.1 L Impressions: Tibia/Fibula X-Ray 11/08/16 15:33 IMPRESSION: NEGATIVE STUDY OF THE RIGHT TIBIA AND FIBULA. NO RADIOGRAPHIC EVIDENCE OF ACUTE INJURY. Assessment & Plan - Diagnosis (1) Compartment syndrome of right lower extremity Qualifiers: Encounter type: initial encounter Qualified Code(s): T79.A21A - Traumatic compartment syndrome of right lower extremity, initial encounter Is this a current diagnosis for this admission?: YesPlan: Today patient will return to the operating room for evaluation of his lower extremity including possible excisional debridement of any nonviable tissue with closure if swelling permits. Risks and benefits of the surgical procedure have been explained to the patient risks including neurovascular risk, postoperative pain, postoperative stiffness, decreased ambulatory status, infection including loss of limb patient has verbalized understanding and consented for the procedure.
[2016-11-10] MEDS ORDERED: BUPIVACAINE HCL 0.5 % INJ/PF 30 ML SDV ONE (13:55)
[2016-11-10] MEDS ORDERED: LIDOCAINE 1% INJ-PF (10 MG/ML) 30 ML SDV ONE (13:55)
[2016-11-10] MEDS ORDERED: FENTANYL CITRATE INJ/PF 100 MCG/2 ML AMPUL ONE ×3 (15:44→18:21)
[2016-11-10] MEDS ORDERED: LIDOCAINE 2% INJ-PF (20 MG/ML) 10 ML AMPUL ONE (15:44)
[2016-11-10] MEDS ORDERED: DEXMEDETOMIDINE INJ 80 MCG/20 ML VIAL IV ONE (15:45)
[2016-11-10] MEDS ORDERED: MIDAZOLAM 2 MG/2 ML INJ ONE (15:45)
[2016-11-10] MEDS ORDERED: PROPOFOL INJ 200 MG/20 ML VIAL IV ONE (15:45)
[2016-11-10] MEDS ORDERED: DIPHENHYDRAMINE HCL 50 MG/ML VIAL IV PRN (16:48)
[2016-11-10] MEDS ORDERED: ONDANSETRON HCL INJ/PF 4 MG/2 ML SDV IV PRN (16:48)
[2016-11-10] MEDS ORDERED: HYDRALAZINE HCL INJ/PF 20 MG/1 ML SDV IV PRN (16:56)
--- NOTE | 2016-11-10 17:14 | PDOC PROGRESS REPORT ---
Subjective Progress Note for:: 11/10/16 Subjective:: Patient seen on morning rounds. He is presently resting in bed. He is presently nothing by mouth, for surgery on right lower extremity again later today. Patient states pain is adequately controlled in the right lower extremity at the present time. He is being treated by orthopedic surgery for right lower extremity compartment syndrome, secondary to crush injury of the right lower extremity. He underwent fasciotomy, and wound debridement. He is return to the OR today for further debridement of the leg. He denies any shortness of breath, dyspnea or chest pain. He states he did have a congested cough. He has raised thick white sputum. He denies any fever or chills. He denies any nausea, abdominal pain or diarrhea. States he is hungry. Physical Exam Vital Signs: Temp Pulse Resp BP Pulse Ox 98.3 F 82 16 181/83 H 98 11/10/16 13:15 11/10/16 13:15 11/10/16 13:15 11/10/16 13:15 11/10/16 13:15 Intake & Output 11/09/16 11/10/16 11/11/16 06:59 06:59 06:59 Intake Total 575 1360 5100 Output Total 1400 5100 Balance 575 -40 0 General appearance: PRESENT: no acute distress, obese, well-developed, well- nourished Head exam: PRESENT: atraumatic, normocephalic Eye exam: PRESENT: conjunctiva pink, EOMI, PERRLA. ABSENT: scleral icterus Ear exam: PRESENT: normal external ear exam Mouth exam: PRESENT: moist, tongue midline Neck exam: ABSENT: carotid bruit, JVD, lymphadenopathy, thyromegaly Respiratory exam: PRESENT: clear to auscultation sb. ABSENT: rales, rhonchi, wheezes Cardiovascular exam: PRESENT: RRR. ABSENT: diastolic murmur, rubs, systolic murmur Pulses: PRESENT: normal dorsalis pedis pul Vascular exam: PRESENT: normal capillary refill GI/Abdominal exam: PRESENT: normal bowel sounds, soft. ABSENT: distended, guarding, mass, organolmegaly, rebound, tenderness Rectal exam: PRESENT: deferred Extremities exam: PRESENT: tenderness, other - right lower extremity surgical wound Musculoskeletal exam: PRESENT: full ROM Neurological exam: PRESENT: alert, awake, oriented to person, oriented to place , oriented to time, oriented to situation, CN II-XII grossly intact. ABSENT: motor sensory deficit Psychiatric exam: PRESENT: appropriate affect, normal mood. ABSENT: homicidal ideation, suicidal ideation Skin exam: PRESENT: other - Right lower surgical dressing is intact patient has had fasciotomy due to compartment syndrome of the right lower leg. Results Laboratory Results: 11/10/16 04:27 11/10/16 04:27 11/10/16 11/10/16 04:27 04:27 WBC 7.4 RBC 3.06 L Hgb 9.8 L Hct 28.8 L MCV 94 MCH 31.9 MCHC 33.9 RDW 13.8 Plt Count 119 L Seg Neutrophils % 65.5 Lymphocytes % 20.9 Monocytes % 10.1 Eosinophils % 3.1 Basophils % 0.4 Absolute Neutrophils 4.8 Absolute Lymphocytes 1.5 Absolute Monocytes 0.7 Absolute Eosinophils 0.2 Absolute Basophils 0.0 Sodium 142.5 Potassium 4.5 Chloride 107 Carbon Dioxide 26 Anion Gap 10 BUN 27 H Creatinine 1.46 H Est GFR ( Amer) 57 L Est GFR (Non-Af Amer) 47 L Glucose 172 H Calcium 8.1 L Impressions: Tibia/Fibula X-Ray 11/08/16 15:33 IMPRESSION: NEGATIVE STUDY OF THE RIGHT TIBIA AND FIBULA. NO RADIOGRAPHIC EVIDENCE OF ACUTE INJURY. Assessment & Plan - Diagnosis (1) Compartment syndrome of right lower extremity Qualifiers: Encounter type: initial encounter Qualified Code(s): T79.A21A - Traumatic compartment syndrome of right lower extremity, initial encounter Is this a current diagnosis for this admission?: YesPlan: Discussed with patient his , the need for optimal glucose management and aseptic wound care. (2) CKD (chronic kidney disease) stage 3, GFR 30-59 ml/min Is this a current diagnosis for this admission?: YesPlan: Patient needs to avoid nephrotoxic medications and dosages. We will change his IV fluid to normal saline. We'll discontinue his NSAID and WALE inhibitor. He is already on an ARB (3) Diabetes mellitus type 1 Qualifiers: Diabetes mellitus complication status: without complication Qualified Code(s): E10.9 - Type 1 diabetes mellitus without complications Is this a current diagnosis for this admission?: YesPlan: Continue tight glucose control. (4) HTN (hypertension) Qualifiers: Hypertension type: essential hypertension Qualified Code(s): I10 - Essential (primary) hypertension Is this a current diagnosis for this admission?: YesPlan: We'll start patient on beta obed and continue ARB. (5) History of fasciotomy Is this a current diagnosis for this admission?: YesPlan: Meticulous wound care by nursing staff. (6) Blood loss anemia Is this a current diagnosis for this admission?: YesPlan: We will continue to monitor. (7) HLD (hyperlipidemia) Qualifiers: Hyperlipidemia type: unspecified Qualified Code(s): E78.5 - Hyperlipidemia, unspecified Is this a current diagnosis for this admission?: YesPlan: Continue statin. (8) CHRISTIANE (obstructive sleep apnea) Is this a current diagnosis for this admission?: YesPlan: Continue CPAP at at bedtime - Time Time Spent with patient: 25-34 minutes Critical Time spent with patient: 25-34 minutes Medications reviewed and adjusted accordingly: Yes
--- NOTE | 2016-11-10 17:54 | Operative Report ---
Operative Report DATE OF SURGERY: 11/08/16 PREOPERATIVE DIAGNOSIS: Right Leg Compartment Syndrome S/P Four Compartment Fasciotomy POSTOPERATIVE DIAGNOSIS: Same OPERATION: Excisional Debridement Muscle and Soft Tissue Right Leg w/ Closure of Fasciotomy Wound, Evacuation Hematoma SURGEON: TERESA SANDERSON ANESTHESIA: GA ESTIMATED BLOOD LOSS: 50cc PROCEDURE: Indication for above procedure: 71-year-old male who presented to the emergency room on 11/08/16 with left leg compartment syndrome. He underwent emergent fasciotomy. I discussed with the patient the need for return to operating room for repeat excisional debridement of the right lower extremity with possible closure. Risks and benefits of the surgical procedure were explained to the patient patient verbalized understanding consented for the procedure. Procedure in detail: Procedure In Detail: Patient was seen and evaluated in the preoperative holding area. The RIGHT lower extremity was initialized and marked. Patient received 2g of Ancef IV for bacterial prophylaxis. Patient was taken back to the operative room where transferred to the operative table and placed under general anesthesia. Once they were adequately anesthetized a nonsterile tourniquet was placed on the lower extremity. A surgical team debriefing was performed ensuring all instrumentation was available, the surgical procedure was discussed with possible concerns reviewed. The upper extremity was prepped with betadine and draped in a sterile fashion. A timeout was done identifying correct patient, procedure and extremity everyone in attendance agree with this and verbalized no concerns. The extremity was elevated the tourniquet was inflated to 300 mmHg. A small 2 cm incision was made outside zone of injury along the medial aspect of the lower leg. Evacuation of hematoma was performed with significantly improved patient's swelling immediately. This area was copiously irrigated with normal saline. By evacuation the medial hematoma provided more elasticity to soft tissues in order to allow possible primary closure. The fasciotomy site was copiously irrigated with normal saline on gravity. There is no significant muscle necrosis. The was a small amount of the peroneus longus muscle which did not contract with Bovie this portion of the muscle was then excised. The remaining anterior, lateral, posterior and deep posterior compartments demonstrate contractibility with Bovie stimulation. There is no evidence of any remaining nonviable tissue. The wound was once again irrigated with saline. Tourniquet was deflated. There was no significant bleeding appreciated. I then proceeded with closure. Subcutaneous tissues were loosely closed with 2-0 Vicryl suture. A tensionless closure was obtained. Once closure was complete patient's soft tissues and compartments remained soft. A small haydee was made in the skin and a 15 Aaron drain was placed laterally. 10 mL of 0.5% Marcaine without epinephrine was injected for postoperative pain control. Wound was dressed with Xeroform, 4 x 4's, loosely applied Kerlix and Aj bandages. Patient had good capillary refill and palpable 1+ dorsalis pedis pulse. Sponge counts, instrument counts, needle counts counts were correct. Patient was then awoken from anesthesia. Transferred from the operating room table to the operating room stretcher. There was no intraoperative complications patient tolerated procedure well stable to PACU. Postoperative plan: Patient will continue IV antibiotics prophylactically. He will follow up in 7 days for recheck of his wound. He will not be started on DVT prophylaxis given his bleeding wrist and likely cause of patient's compartment syndrome.
[2016-11-10] MEDS ORDERED: ACETAMINOPHEN 100 ML IV ONE (18:39)
[2016-11-10] MEDS: MORPHINE SULFATE 10 MG/ML INJ IV PRN (19:50)
[2016-11-10] MEDS ORDERED: SUCCINYLCHOLINE CHLORIDE INJ 200 MG/10 ML VIAL ONE (20:10)
[2016-11-10] MEDS ORDERED: ONDANSETRON HCL INJ/PF 4 MG/2 ML SDV ONE (20:10)
--- NOTE | 2016-11-10 20:23 | EKG REPORT ---
SEVERITY:- ABNORMAL ECG - SINUS RHYTHM NONSPECIFIC T ABNORMALITIES, DIFFUSE LEADS : Confirmed by: Abner Sanchez 10-Nov-2016 20:22:20
[2016-11-10] MEDS: INSULIN GLARGINE,HUM.REC.ANLOG 1,000 UNIT/10 ML UNIT SUBCUT SCH (22:19)
[2016-11-10] MEDS: INSULIN LISPRO 100 UNIT/ML 3 ML VIAL SUBCUT PRN (22:21)
[2016-11-10] MEDS: METOPROLOL SUCCINATE 25 MG TAB.SR.24H PO SCH (22:22)
[2016-11-10] MEDS: ACETAMINOPHEN 325 MG TABLET PO SCH (22:24)
[2016-11-10] MEDS: TEMAZEPAM 7.5 MG CAPSULE PO SCH (22:25)
[2016-11-11] MEDS: CEFAZOLIN 2 GM/D5W RTU 2 GM/50 ML RTUPB IV SCH ×4 (00:15→18:01)
[2016-11-11 04:27] LABS: ABSOLUTE EOSINOPHILS # (AUTO) 0.2 10^3/uL (0.0-0.6); ABSOLUTE LYMPHOCYTES (AUTO) 1.2 10^3/uL (0.5-4.7); ABSOLUTE MONOCYTES (AUTO) 0.8 10^3/uL (0.1-1.4); ABSOLUTE NEUT (AUTO) 5.4 10^3/uL (1.7-8.2); BASOPHILS % (AUTO) 0.4 % (0-2); EOSINOPHILS % (AUTO) 2.8 % (0-6); HEMATOCRIT 28.3 % (37.9-51.0); HEMOGLOBIN 9.7 g/dL (13.5-17.0); HGB HCT DIFFERENCE 0.8; LYMPHOCYTES % (AUTO) 16.1 % (13-45); MEAN CORPUSCULAR HEMOGLOBIN 31.9 pg (27.0-33.4); MEAN CORPUSCULAR HGB CONC 34.2 g/dL (32.0-36.0); MEAN CORPUSCULAR VOLUME 93 fl (80-97); MONOCYTES % (AUTO) 10.7 % (3-13); RED BLOOD COUNT 3.03 10^6/uL (4.35-5.55); RED CELL DISTRIBUTION WIDTH 13.7 % (11.5-14.0); WHITE BLOOD COUNT 7.7 10^3/uL (4.0-10.5)
[2016-11-11 04:54] LABS: ANION GAP 7 (5-19); BLOOD UREA NITROGEN 20 mg/dL (7-20); CARBON DIOXIDE 26 mmol/L (22-30); CHLORIDE 110 mmol/L (98-107); CREATININE RESULT 1.28 mg/dL (0.52-1.25); GLUCOSE 134 mg/dL (75-110); MAGNESIUM 2.1 mg/dL (1.6-2.3); PHOSPHORUS 3.1 mg/dL (2.5-4.5); POTASSIUM 4.1 mmol/L (3.6-5.0); SODIUM 143.1 mmol/L (137-145)
[2016-11-11] MEDS ORDERED: CEFAZOLIN INJ 1 GM VIAL ONE (06:14)
[2016-11-11] MEDS: METOPROLOL SUCCINATE 25 MG TAB.SR.24H PO SCH ×2 (09:14→22:29)
[2016-11-11] MEDS: MULTIVITAMIN TABLET PO SCH (09:14)
[2016-11-11] MEDS: ATORVASTATIN CALCIUM 10 MG TABLET PO SCH (09:14)
[2016-11-11] MEDS: CALCIUM CARBONATE 500 MG TABLET PO SCH (09:14)
[2016-11-11] MEDS: LOSARTAN POTASSIUM 25 MG TABLET PO SCH (09:14)
[2016-11-11] MEDS: OXYCODONE-ACETAMINOPHEN 5-325 MG TABLET PO PRN (09:14)
[2016-11-11] MEDS: FUROSEMIDE 40 MG TABLET PO SCH (09:14)
[2016-11-11] MEDS: FERROUS SULFATE 325 MG TABLET PO SCH ×2 (09:15→18:02)
[2016-11-11] MEDS: DOCUSATE SODIUM 100 MG CAPSULE PO SCH ×2 (09:15→18:02)
[2016-11-11] MEDS: CYCLOBENZAPRINE HCL 10 MG TABLET PO SCH ×3 (09:57→18:01)
[2016-11-11] MEDS: INSULIN LISPRO 100 UNIT/ML 3 ML VIAL SUBCUT PRN (11:04)
[2016-11-11] MEDS ORDERED: NORMAL SALINE 1000 ML 1,000 ML IV PRN (11:39)
[2016-11-11] MEDS ORDERED: BISACODYL 10 MG SUPP.RECT PR PRN (11:40)
[2016-11-11] MEDS: DIPHENHYDRAMINE HCL 25 MG CAPSULE PO PRN (14:53)
--- NOTE | 2016-11-11 16:29 | PDOC PROGRESS REPORT ---
Subjective Progress Note for:: 11/11/16 Subjective:: Patient seen on morning rounds. He is presently resting in bed. He was taken back to the OR yesterday afternoon by orthopedics and were able to successfully close his fasciotomy wound of right lower leg. Patient states pain is adequately controlled in the right lower extremity at the present time. He was able to start PT this am with partial weight bearing. He denies any other symptoms at the present time Physical Exam Vital Signs: Temp Pulse Resp BP Pulse Ox 98.9 F 61 18 151/65 H 98 11/11/16 07:40 11/11/16 07:40 11/11/16 08:00 11/11/16 07:40 11/11/16 08:00 Pulse Oximeter Continuous Start: 11/10/16 18: 46 Freq: RTQ4 Status: Active Document 11/11/16 08:00 N[facility] (Rec: 11/11/16 08:39 NSC [id number]) Pulse Oximetry Assessment Oxygen Saturation (92-100) 98 Oxygen Flow Rate (L/min) 1 Oxygen Delivery Method CPAP Fraction of Inspired Oxygen (FIO2) 24 Equipment Usage Equipment in Use Continuous SpO2 Machine # N 3 Additional RT Notes Other Mr Hernandez explained his home machine had not been functioning well. He currently has his circuit set up on [employer] system 1. I have encouraged pt to have his home care company to check out his machine. Intake & Output 11/10/16 11/11/16 11/12/16 06:59 06:59 06:59 Intake Total 1360 8000 Output Total 1400 7705 Balance -40 295 Weight 113.8 kg General appearance: PRESENT: no acute distress, obese, well-developed, well- nourished Head exam: PRESENT: atraumatic, normocephalic Eye exam: PRESENT: conjunctiva pink, EOMI, PERRLA. ABSENT: scleral icterus Ear exam: PRESENT: normal external ear exam Mouth exam: PRESENT: moist, tongue midline Neck exam: ABSENT: carotid bruit, JVD, lymphadenopathy, thyromegaly Respiratory exam: PRESENT: clear to auscultation sb. ABSENT: rales, rhonchi, wheezes Cardiovascular exam: PRESENT: RRR. ABSENT: diastolic murmur, rubs, systolic murmur Pulses: PRESENT: normal carotid pulses, normal radial pulses Vascular exam: PRESENT: normal capillary refill GI/Abdominal exam: PRESENT: normal bowel sounds, soft. ABSENT: distended, guarding, mass, organolmegaly, rebound, tenderness Rectal exam: PRESENT: deferred Extremities exam: PRESENT: calf tenderness - right lower leg, fasciotomy site no drainage in MIRTHA drain Musculoskeletal exam: PRESENT: ambulatory, tenderness Neurological exam: PRESENT: alert, awake, oriented to person, oriented to place , oriented to time, oriented to situation, CN II-XII grossly intact. ABSENT: motor sensory deficit Psychiatric exam: PRESENT: appropriate affect, normal mood. ABSENT: homicidal ideation, suicidal ideation Skin exam: PRESENT: dry, intact, warm. ABSENT: cyanosis, rash Results Laboratory Results: 11/11/16 03:57 11/11/16 03:57 11/11/16 11/11/16 03:57 03:57 WBC 7.7 RBC 3.03 L Hgb 9.7 L Hct 28.3 L MCV 93 MCH 31.9 MCHC 34.2 RDW 13.7 Plt Count 125 L Seg Neutrophils % 70.0 Lymphocytes % 16.1 Monocytes % 10.7 Eosinophils % 2.8 Basophils % 0.4 Absolute Neutrophils 5.4 Absolute Lymphocytes 1.2 Absolute Monocytes 0.8 Absolute Eosinophils 0.2 Absolute Basophils 0.0 Sodium 143.1 Potassium 4.1 Chloride 110 H Carbon Dioxide 26 Anion Gap 7 BUN 20 Creatinine 1.28 H Est GFR ( Amer) > 60 Est GFR (Non-Af Amer) 55 L Glucose 134 H Calcium 8.0 L Phosphorus 3.1 Magnesium 2.1 11/10/16 04:27 Creatine Kinase 443 H Impressions: Tibia/Fibula X-Ray 11/08/16 15:33 IMPRESSION: NEGATIVE STUDY OF THE RIGHT TIBIA AND FIBULA. NO RADIOGRAPHIC EVIDENCE OF ACUTE INJURY. Assessment & Plan - Diagnosis (1) Compartment syndrome of right lower extremity Qualifiers: Encounter type: initial encounter Qualified Code(s): T79.A21A - Traumatic compartment syndrome of right lower extremity, initial encounter Is this a current diagnosis for this admission?: YesPlan: Incision was able to be closed after drainage of large hematoma yesterday. He has started PT. We will continue empiric antbiotics. Tight glucose control and monitor (2) CKD (chronic kidney disease) stage 3, GFR 30-59 ml/min Is this a current diagnosis for this admission?: YesPlan: Patient needs to avoid nephrotoxic medications and dosages. We will change his IV fluid to normal saline. Improvement in Cr clearance since yesterday We'll discontinue his NSAID and WALE inhibitor. He is already on an ARB (3) Diabetes mellitus type 1 Qualifiers: Diabetes mellitus complication status: without complication Qualified Code(s): E10.9 - Type 1 diabetes mellitus without complications Is this a current diagnosis for this admission?: YesPlan: Continue tight glucose control. On insulin and sliding scale (4) HTN (hypertension) Qualifiers: Hypertension type: essential hypertension Qualified Code(s): I10 - Essential (primary) hypertension Is this a current diagnosis for this admission?: YesPlan: We'll start patient on beta obed and continue ARB. Improvement noted in BP (5) History of fasciotomy Is this a current diagnosis for this admission?: YesPlan: Meticulous wound care by nursing staff. Progression of activity with PT (6) Blood loss anemia Is this a current diagnosis for this admission?: YesPlan: We will continue to monitor. (7) HLD (hyperlipidemia) Qualifiers: Hyperlipidemia type: unspecified Qualified Code(s): E78.5 - Hyperlipidemia, unspecified Is this a current diagnosis for this admission?: YesPlan: Continue statin. (8) CHRISTIANE (obstructive sleep apnea) Is this a current diagnosis for this admission?: YesPlan: Continue CPAP at at bedtime - Time Time Spent with patient: 25-34 minutes Critical Time spent with patient: 15-24 minutes Medications reviewed and adjusted accordingly: Yes Anticipated discharge: Home with Homehealth
[2016-11-11] MEDS ORDERED: INSULIN LISPRO 100 UNIT/ML 3 ML VIAL SUBCUT ONE (16:45)
--- NOTE | 2016-11-11 18:16 | PDOC PROGRESS REPORT ---
Subjective Progress Note for:: 11/11/16 Subjective:: Patient awake and having conversation but slightly disoriented. No issues overnight. Pain adequately controlled Physical Exam Vital Signs: Temp Pulse Resp BP Pulse Ox 37.1 C 66 18 158/53 H 95 11/11/16 16:19 11/11/16 16:19 11/11/16 16:19 11/11/16 16:19 11/11/16 16:19 Pulse Oximeter Continuous Start: 11/10/16 18: 46 Freq: RTQ4 Status: Active Document 11/11/16 08:00 [facility] [place] (Rec: 11/11/16 08:39 NSC [id number]) Pulse Oximetry Assessment Oxygen Saturation (92-100) 98 Oxygen Flow Rate (L/min) 1 Oxygen Delivery Method CPAP Fraction of Inspired Oxygen (FIO2) 24 Equipment Usage Equipment in Use Continuous SpO2 Machine # N 3 Additional RT Notes Other Mr Hernandez explained his home machine had not been functioning well. He currently has his circuit set up on [employer] system 1. I have encouraged pt to have his home care company to check out his machine. Intake & Output 11/10/16 11/11/16 11/12/16 06:59 06:59 06:59 Intake Total 1360 8000 Output Total 1400 7705 Balance -40 295 Weight 113.8 kg General appearance: PRESENT: no acute distress Neurological exam: PRESENT: awake, oriented to person, oriented to place Psychiatric exam: PRESENT: appropriate affect, normal mood Adult Front & Back Image: 1 - Dressing is dry clean and intact with minimal drainage. Drain output was less than 20 mL's for the whole day. Soft calf to palpation. Appropriate Tenderness with palpation. Susceptible capillary refill. Patient has gross sensation to light touch with motor 5 out of 5 of EHL/FHL/TA Results Laboratory Results: 11/11/16 03:57 11/11/16 03:57 11/11/16 11/11/16 03:57 03:57 WBC 7.7 RBC 3.03 L Hgb 9.7 L Hct 28.3 L MCV 93 MCH 31.9 MCHC 34.2 RDW 13.7 Plt Count 125 L Seg Neutrophils % 70.0 Lymphocytes % 16.1 Monocytes % 10.7 Eosinophils % 2.8 Basophils % 0.4 Absolute Neutrophils 5.4 Absolute Lymphocytes 1.2 Absolute Monocytes 0.8 Absolute Eosinophils 0.2 Absolute Basophils 0.0 Sodium 143.1 Potassium 4.1 Chloride 110 H Carbon Dioxide 26 Anion Gap 7 BUN 20 Creatinine 1.28 H Est GFR ( Amer) > 60 Est GFR (Non-Af Amer) 55 L Glucose 134 H Calcium 8.0 L Phosphorus 3.1 Magnesium 2.1 11/10/16 04:27 Creatine Kinase 443 H Impressions: Tibia/Fibula X-Ray 11/08/16 15:33 IMPRESSION: NEGATIVE STUDY OF THE RIGHT TIBIA AND FIBULA. NO RADIOGRAPHIC EVIDENCE OF ACUTE INJURY. Assessment & Plan - Plan Summary Plan Summary: 71-year-old patient postop day 1 from 4 compartment release of the right lower extremity. Drain was removed. H&H is stable Continue pain control. Plan for dressing change tomorrow.
[2016-11-11] MEDS: INSULIN GLARGINE,HUM.REC.ANLOG 1,000 UNIT/10 ML UNIT SUBCUT SCH (22:29)
[2016-11-11] MEDS: TEMAZEPAM 7.5 MG CAPSULE PO SCH (22:29)
[2016-11-11] MEDS: ACETAMINOPHEN 325 MG TABLET PO SCH (22:29)
[2016-11-12] MEDS: CEFAZOLIN 2 GM/D5W RTU 2 GM/50 ML RTUPB IV SCH ×4 (00:12→17:25)
[2016-11-12] MEDS ORDERED: INSULIN LISPRO 100 UNIT/ML 3 ML VIAL SUBCUT SCH (08:00)
[2016-11-12 09:48] LABS: ANION GAP 8 (5-19); BLOOD UREA NITROGEN 19 mg/dL (7-20); CALCIUM 8.2 mg/dL (8.4-10.2); CARBON DIOXIDE 23 mmol/L (22-30); CHLORIDE 109 mmol/L (98-107); CREATININE RESULT 1.27 mg/dL (0.52-1.25); GLUCOSE 235 mg/dL (75-110); POTASSIUM 4.2 mmol/L (3.6-5.0); SODIUM 140.3 mmol/L (137-145)
[2016-11-12] MEDS: FERROUS SULFATE 325 MG TABLET PO SCH ×2 (09:53→17:25)
[2016-11-12] MEDS: CALCIUM CARBONATE 500 MG TABLET PO SCH (09:54)
[2016-11-12] MEDS: METOPROLOL SUCCINATE 25 MG TAB.SR.24H PO SCH ×2 (09:54→22:31)
[2016-11-12] MEDS: MULTIVITAMIN TABLET PO SCH (09:54)
[2016-11-12] MEDS: FUROSEMIDE 40 MG TABLET PO SCH (09:54)
[2016-11-12] MEDS: DOCUSATE SODIUM 100 MG CAPSULE PO SCH ×2 (09:54→17:25)
[2016-11-12] MEDS: LOSARTAN POTASSIUM 25 MG TABLET PO SCH ×2 (09:54→10:28)
[2016-11-12] MEDS: ATORVASTATIN CALCIUM 10 MG TABLET PO SCH (09:55)
[2016-11-12] MEDS: CYCLOBENZAPRINE HCL 10 MG TABLET PO SCH ×3 (09:55→17:25)
[2016-11-12] MEDS: DIPHENHYDRAMINE HCL 25 MG CAPSULE PO PRN ×2 (10:28→17:25)
[2016-11-12] MEDS ORDERED: NA PHOS,M-B/NA PHOS,DI-BA (ADULT) 133 ML ENEMA PR ONE (10:30)
[2016-11-12] MEDS: BISACODYL 5 MG TABEC PO PRN (12:26)
--- NOTE | 2016-11-12 15:02 | PDOC PROGRESS REPORT ---
Subjective Progress Note for:: 11/12/16 Subjective:: Patient seen on morning rounds. He is presently resting in bed. He denies any shortness of breath, chest pain or dyspnea. He denies any nausea, vomiting or abdominal pain. He states his bowel still have not moved. Complains of low- grade fever this morning. He has not been doing his incentive spirometry. He denies any significant pain present time. He states he does have significant pain in the right lower extremity when he does attempt to stand up with it. We reinforced his need to participate with physical therapy for mobility purposes. Physical Exam Vital Signs: Temp Pulse Resp BP Pulse Ox 99.4 F 76 20 170/66 H 100 11/12/16 12:00 11/12/16 11:28 11/12/16 11:28 11/12/16 11:28 11/12/16 11:28 Pulse Oximeter Continuous Start: 11/10/16 18: 46 Freq: RTQ4 Status: Complete Document 11/12/16 04:00 SFL (Rec: 11/12/16 06:04 SFL [email or web address]) Pulse Oximetry Assessment Equipment Usage Equipment Standby Continuous SpO2 Machine # 3 Intake & Output 11/11/16 11/12/16 11/13/16 06:59 06:59 06:59 Intake Total 8000 680 475 Output Total 7705 1350 Balance 295 -670 475 Weight 113.8 kg General appearance: PRESENT: no acute distress, well-developed, well-nourished Head exam: PRESENT: atraumatic, normocephalic Eye exam: PRESENT: conjunctiva pink, EOMI, PERRLA. ABSENT: scleral icterus Ear exam: PRESENT: normal external ear exam Mouth exam: PRESENT: moist, tongue midline Neck exam: ABSENT: carotid bruit, JVD, lymphadenopathy, thyromegaly Respiratory exam: PRESENT: decreased breath sounds, symmetrical, unlabored Cardiovascular exam: PRESENT: RRR. ABSENT: diastolic murmur, rubs, systolic murmur Pulses: PRESENT: normal dorsalis pedis pul Vascular exam: PRESENT: normal capillary refill GI/Abdominal exam: PRESENT: normal bowel sounds, soft. ABSENT: distended, guarding, mass, organolmegaly, rebound, tenderness Rectal exam: PRESENT: deferred Extremities exam: PRESENT: calf tenderness - right incisional, full ROM. ABSENT : clubbing, pedal edema Musculoskeletal exam: PRESENT: full ROM, tenderness - right Neurological exam: PRESENT: alert, awake, oriented to person, oriented to place , oriented to time, oriented to situation, CN II-XII grossly intact. ABSENT: motor sensory deficit Psychiatric exam: PRESENT: appropriate affect, normal mood. ABSENT: homicidal ideation, suicidal ideation Skin exam: PRESENT: dry, intact, warm. ABSENT: cyanosis, rash Results Laboratory Results: 11/11/16 03:57 11/12/16 09:09 11/12/16 09:09 Sodium 140.3 Potassium 4.2 Chloride 109 H Carbon Dioxide 23 Anion Gap 8 BUN 19 Creatinine 1.27 H Est GFR ( Amer) > 60 Est GFR (Non-Af Amer) 56 L Glucose 235 H Calcium 8.2 L 11/10/16 04:27 Creatine Kinase 443 H Impressions: Tibia/Fibula X-Ray 11/08/16 15:33 IMPRESSION: NEGATIVE STUDY OF THE RIGHT TIBIA AND FIBULA. NO RADIOGRAPHIC EVIDENCE OF ACUTE INJURY. Assessment & Plan - Diagnosis (1) Compartment syndrome of right lower extremity Qualifiers: Encounter type: initial encounter Qualified Code(s): T79.A21A - Traumatic compartment syndrome of right lower extremity, initial encounter Is this a current diagnosis for this admission?: YesPlan: Incision was able to be closed after drainage of large hematoma on Wednesday. He has started PT. We will continue empiric antbiotics. Tight glucose control and monitor for signs of infection (2) CKD (chronic kidney disease) stage 3, GFR 30-59 ml/min Is this a current diagnosis for this admission?: YesPlan: Patient needs to avoid nephrotoxic medications and dosages. We will change his IV fluid to normal saline. Improvement in Cr clearance since yesterday We'll discontinue his NSAID and WALE inhibitor. He is already on an ARB (3) Diabetes mellitus type 1 Qualifiers: Diabetes mellitus complication status: without complication Qualified Code(s): E10.9 - Type 1 diabetes mellitus without complications Is this a current diagnosis for this admission?: YesPlan: Continue tight glucose control. On insulin and sliding scale (4) HTN (hypertension) Qualifiers: Hypertension type: essential hypertension Qualified Code(s): I10 - Essential (primary) hypertension Is this a current diagnosis for this admission?: YesPlan: We'll start patient on beta obed and continue ARB. Improvement noted in BP (5) History of fasciotomy Is this a current diagnosis for this admission?: YesPlan: Meticulous wound care by nursing staff. Progression of activity with PT (6) Blood loss anemia Is this a current diagnosis for this admission?: YesPlan: We will continue to monitor. (7) HLD (hyperlipidemia) Qualifiers: Hyperlipidemia type: unspecified Qualified Code(s): E78.5 - Hyperlipidemia, unspecified Is this a current diagnosis for this admission?: YesPlan: Continue statin. (8) CHRISTIANE (obstructive sleep apnea) Is this a current diagnosis for this admission?: YesPlan: Continue CPAP at at bedtime - Time Time Spent with patient: 25-34 minutes Medications reviewed and adjusted accordingly: Yes Anticipated discharge: Home with Homehealth - Inpatient Certification Based on my medical assessment, after consideration of the patient's comorbidities, presenting symptoms, or acuity I expect that the services needed warrant INPATIENT care.: Yes Medical Necessity: Need Close Monitoring Due to Risk of Patient Decompensation, Need For IV Fluids, Need for Neurological Checks, Need for Pain Control, Need for IV Antibiotics, Need for Surgery
[2016-11-12] MEDS: INSULIN LISPRO 100 UNIT/ML 3 ML VIAL SUBCUT SCH (17:44)
--- NOTE | 2016-11-12 17:45 | PDOC PROGRESS REPORT ---
Subjective Progress Note for:: 11/12/16 Subjective:: Patient is sitting at the end of the bed being changed by nursing assistance. Patient states he worked with physical therapy but had a hard time. Having increased pain today especially when the leg is down. No acute issues overnight. Stating he has a low-grade fever of 99 but feels okay. Physical Exam Vital Signs: Temp Pulse Resp BP Pulse Ox 37.3 C 78 20 181/68 H 96 11/12/16 15:08 11/12/16 15:08 11/12/16 15:08 11/12/16 15:08 11/12/16 15:08 Pulse Oximeter Continuous Start: 11/10/16 18: 46 Freq: RTQ4 Status: Complete Document 11/12/16 04:00 SFL (Rec: 11/12/16 06:04 SFL [email or web address]) Pulse Oximetry Assessment Equipment Usage Equipment Standby Continuous SpO2 Machine # 3 Intake & Output 11/11/16 11/12/16 11/13/16 06:59 06:59 06:59 Intake Total 8000 680 1275 Output Total 7705 1350 2000 Balance 295 -592 -725 Weight 113.8 kg General appearance: PRESENT: no acute distress Neurological exam: PRESENT: alert, awake, oriented to person, oriented to place Psychiatric exam: PRESENT: appropriate affect, normal mood Adult Front & Back Image: 1 - Dressing is dry clean and intact. Patient has positive EHL and FHL and able to dorsiflex the ankle although slight weakness second to pain. Good capillary refill distally. Tender to palpation but soft depressible calf. Results Laboratory Results: 11/11/16 03:57 11/12/16 09:09 11/12/16 09:09 Sodium 140.3 Potassium 4.2 Chloride 109 H Carbon Dioxide 23 Anion Gap 8 BUN 19 Creatinine 1.27 H Est GFR ( Amer) > 60 Est GFR (Non-Af Amer) 56 L Glucose 235 H Calcium 8.2 L 11/10/16 04:27 Creatine Kinase 443 H Impressions: Tibia/Fibula X-Ray 11/08/16 15:33 IMPRESSION: NEGATIVE STUDY OF THE RIGHT TIBIA AND FIBULA. NO RADIOGRAPHIC EVIDENCE OF ACUTE INJURY. Assessment & Plan - Plan Summary Plan Summary: 71-year-old gentleman postop day 3 for compartment release right lower extremity. Continue physical therapy. I urged him to use incentive spirometer for his low-grade temperature. Consider removing Cortes but would ask hospitalist for their recommendation Continue pain control After discussing with the and patient they started talking to the production control planner and will attempt to be transferred to a long-term facility due to the slow progress with therapy. There are aware they would probably end up staying over the weekend and at best would be going to facility on Wednesday or Wednesday.
[2016-11-12] MEDS: TEMAZEPAM 7.5 MG CAPSULE PO SCH (22:30)
[2016-11-12] MEDS: INSULIN GLARGINE,HUM.REC.ANLOG 1,000 UNIT/10 ML UNIT SUBCUT SCH (22:30)
[2016-11-12] MEDS: ACETAMINOPHEN 325 MG TABLET PO SCH (22:31)
[2016-11-13] MEDS: CEFAZOLIN 2 GM/D5W RTU 2 GM/50 ML RTUPB IV SCH ×5 (00:37→23:33)
[2016-11-13 04:31] LABS: ABSOLUTE EOSINOPHILS # (AUTO) 0.3 10^3/uL (0.0-0.6); ABSOLUTE LYMPHOCYTES (AUTO) 1.3 10^3/uL (0.5-4.7); ABSOLUTE MONOCYTES (AUTO) 0.9 10^3/uL (0.1-1.4); ABSOLUTE NEUT (AUTO) 5.4 10^3/uL (1.7-8.2); BASOPHILS % (AUTO) 0.5 % (0-2); EOSINOPHILS % (AUTO) 3.4 % (0-6); HEMATOCRIT 27.1 % (37.9-51.0); HEMOGLOBIN 9.3 g/dL (13.5-17.0); HGB HCT DIFFERENCE 0.8; LYMPHOCYTES % (AUTO) 16.3 % (13-45); MEAN CORPUSCULAR HEMOGLOBIN 32.3 pg (27.0-33.4); MEAN CORPUSCULAR HGB CONC 34.2 g/dL (32.0-36.0); MEAN CORPUSCULAR VOLUME 95 fl (80-97); MONOCYTES % (AUTO) 11.4 % (3-13); RED BLOOD COUNT 2.87 10^6/uL (4.35-5.55); RED CELL DISTRIBUTION WIDTH 13.4 % (11.5-14.0); SEGMENTED NEUTROPHILS % (AUTO) 68.4 % (42-78); WHITE BLOOD COUNT 7.8 10^3/uL (4.0-10.5)
[2016-11-13 04:36] LABS: ANION GAP 10 (5-19); BLOOD UREA NITROGEN 23 mg/dL (7-20); CALCIUM 8.3 mg/dL (8.4-10.2); CARBON DIOXIDE 23 mmol/L (22-30); CHLORIDE 109 mmol/L (98-107); CREATININE RESULT 1.22 mg/dL (0.52-1.25); GLUCOSE 143 mg/dL (75-110); POTASSIUM 3.8 mmol/L (3.6-5.0); SODIUM 141.9 mmol/L (137-145)
[2016-11-13] MEDS: DOCUSATE SODIUM 100 MG CAPSULE PO SCH ×2 (09:45→17:32)
[2016-11-13] MEDS: CALCIUM CARBONATE 500 MG TABLET PO SCH (09:46)
[2016-11-13] MEDS: MULTIVITAMIN TABLET PO SCH (09:46)
[2016-11-13] MEDS: FERROUS SULFATE 325 MG TABLET PO SCH ×2 (09:46→17:33)
[2016-11-13] MEDS: ATORVASTATIN CALCIUM 10 MG TABLET PO SCH (09:46)
[2016-11-13] MEDS: METOPROLOL SUCCINATE 25 MG TAB.SR.24H PO SCH ×2 (09:46→22:36)
[2016-11-13] MEDS: CYCLOBENZAPRINE HCL 10 MG TABLET PO SCH ×3 (09:46→17:33)
[2016-11-13] MEDS: LOSARTAN POTASSIUM 25 MG TABLET PO SCH (09:48)
[2016-11-13] MEDS: FUROSEMIDE 40 MG TABLET PO SCH (09:48)
[2016-11-13] MEDS ORDERED: DIPHENHYDRAMINE HCL 2% CREAM 30 GM TP PRN (10:01)
[2016-11-13] MEDS: HYDROCORTISONE 1% CREAM 28.35 GM TP PRN (11:36)
--- NOTE | 2016-11-13 13:43 | PDOC PROGRESS REPORT ---
Subjective Progress Note for:: 11/13/16 Subjective:: Patient seen and evaluated on rounds this morning. Pain controlled. No issues overnight. Did struggle w/ PT yesterday. Physical Exam Vital Signs: Temp Pulse Resp BP Pulse Ox 98.2 F 75 18 167/61 H 96 11/13/16 11:57 11/13/16 11:57 11/13/16 11:57 11/13/16 11:57 11/13/16 11:57 Pulse Oximeter Continuous Start: 11/10/16 18: 46 Freq: RTQ4 Status: Complete Document 11/12/16 04:00 SFL (Rec: 11/12/16 06:04 SFL [email or web address]) Pulse Oximetry Assessment Equipment Usage Equipment Standby Continuous SpO2 Machine # 3 Intake & Output 11/12/16 11/13/16 11/14/16 06:59 06:59 06:59 Intake Total 680 1325 Output Total 1350 3400 Balance -670 -2075 Weight 113.8 kg General appearance: PRESENT: no acute distress, cooperative Musculoskeletal exam: PRESENT: other - Right Leg: Incision healing. Medial wound shows necrosis of central region. No erythema. No evidence of drainage. Compartment soft and compressible. Intact PF/DF/EHL. No sensory deficits. Capillary Refill <2sec. No pain w/ passive stretch. Results Laboratory Results: 11/13/16 03:49 11/13/16 03:49 11/13/16 11/13/16 03:49 03:49 WBC 7.8 RBC 2.87 L Hgb 9.3 L Hct 27.1 L MCV 95 MCH 32.3 MCHC 34.2 RDW 13.4 Plt Count 131 L Seg Neutrophils % 68.4 Lymphocytes % 16.3 Monocytes % 11.4 Eosinophils % 3.4 Basophils % 0.5 Absolute Neutrophils 5.4 Absolute Lymphocytes 1.3 Absolute Monocytes 0.9 Absolute Eosinophils 0.3 Absolute Basophils 0.0 Sodium 141.9 Potassium 3.8 Chloride 109 H Carbon Dioxide 23 Anion Gap 10 BUN 23 H Creatinine 1.22 Est GFR ( Amer) > 60 Est GFR (Non-Af Amer) 58 L Glucose 143 H Calcium 8.3 L 11/10/16 04:27 Creatine Kinase 443 H Impressions: Tibia/Fibula X-Ray 11/08/16 15:33 IMPRESSION: NEGATIVE STUDY OF THE RIGHT TIBIA AND FIBULA. NO RADIOGRAPHIC EVIDENCE OF ACUTE INJURY. Assessment & Plan - Diagnosis (1) Compartment syndrome of right lower extremity Qualifiers: Encounter type: initial encounter Qualified Code(s): T79.A21A - Traumatic compartment syndrome of right lower extremity, initial encounter Is this a current diagnosis for this admission?: YesPlan: S/P Fasciotomy R Leg Patient's fasciotomy has been closed now. At this point we will advance his weightbearing to as tolerated. He does have necrosis of the medial wound which is anticipated given the severity of the patient's blisters. We will continue him on antibiotics. I will also start him on heparin for DVT prophylaxis. Anticipate discharge to longterm facility on Wednesday or when bed available
--- NOTE | 2016-11-13 14:46 | PDOC PROGRESS REPORT ---
Subjective Progress Note for:: 11/13/16 Subjective:: Patient seen on morning rounds. He is presently resting in bed. He denies any shortness of breath, chest pain or dyspnea. He denies any nausea, vomiting or abdominal pain. He states his bowel still have not moved. Complains of low- grade fever this morning. He has not been doing his incentive spirometry. He denies any significant pain present time. He states he does have significant pain in the right lower extremity when he does attempt to stand up with it. We reinforced his need to participate with physical therapy for mobility purposes. Physical Exam Vital Signs: Temp Pulse Resp BP Pulse Ox 98.2 F 75 18 167/61 H 96 11/13/16 11:57 11/13/16 11:57 11/13/16 11:57 11/13/16 11:57 11/13/16 11:57 Pulse Oximeter Continuous Start: 11/10/16 18: 46 Freq: RTQ4 Status: Complete Document 11/12/16 04:00 SFL (Rec: 11/12/16 06:04 SFL [email or web address]) Pulse Oximetry Assessment Equipment Usage Equipment Standby Continuous SpO2 Machine # 3 Intake & Output 11/12/16 11/13/16 11/14/16 06:59 06:59 06:59 Intake Total 680 1325 50 Output Total 1350 3400 Balance -670 -4022 50 Weight 113.8 kg General appearance: PRESENT: no acute distress, morbidly obese, well-developed, well-nourished Head exam: PRESENT: atraumatic, normocephalic Eye exam: PRESENT: conjunctiva pink, EOMI, PERRLA. ABSENT: scleral icterus Ear exam: PRESENT: normal external ear exam Mouth exam: PRESENT: moist, tongue midline Neck exam: ABSENT: carotid bruit, JVD, lymphadenopathy, thyromegaly Respiratory exam: PRESENT: clear to auscultation sb. ABSENT: rales, rhonchi, wheezes Pulses: PRESENT: normal dorsalis pedis pul Vascular exam: PRESENT: normal capillary refill GI/Abdominal exam: PRESENT: normal bowel sounds, soft. ABSENT: distended, guarding, mass, organolmegaly, rebound, tenderness Rectal exam: PRESENT: deferred Extremities exam: PRESENT: calf tenderness - right Musculoskeletal exam: PRESENT: full ROM, tenderness Neurological exam: PRESENT: alert, awake, oriented to person, oriented to place , oriented to time, oriented to situation, CN II-XII grossly intact. ABSENT: motor sensory deficit Psychiatric exam: PRESENT: appropriate affect, normal mood. ABSENT: homicidal ideation, suicidal ideation Skin exam: PRESENT: other - right lower leg fasciotomy site with dressing covering right lower leg Results Laboratory Results: 11/13/16 03:49 11/13/16 03:49 11/13/16 11/13/16 03:49 03:49 WBC 7.8 RBC 2.87 L Hgb 9.3 L Hct 27.1 L MCV 95 MCH 32.3 MCHC 34.2 RDW 13.4 Plt Count 131 L Seg Neutrophils % 68.4 Lymphocytes % 16.3 Monocytes % 11.4 Eosinophils % 3.4 Basophils % 0.5 Absolute Neutrophils 5.4 Absolute Lymphocytes 1.3 Absolute Monocytes 0.9 Absolute Eosinophils 0.3 Absolute Basophils 0.0 Sodium 141.9 Potassium 3.8 Chloride 109 H Carbon Dioxide 23 Anion Gap 10 BUN 23 H Creatinine 1.22 Est GFR ( Amer) > 60 Est GFR (Non-Af Amer) 58 L Glucose 143 H Calcium 8.3 L 11/10/16 04:27 Creatine Kinase 443 H Impressions: Tibia/Fibula X-Ray 11/08/16 15:33 IMPRESSION: NEGATIVE STUDY OF THE RIGHT TIBIA AND FIBULA. NO RADIOGRAPHIC EVIDENCE OF ACUTE INJURY. Assessment & Plan - Diagnosis (1) Compartment syndrome of right lower extremity Qualifiers: Encounter type: initial encounter Qualified Code(s): T79.A21A - Traumatic compartment syndrome of right lower extremity, initial encounter Is this a current diagnosis for this admission?: YesPlan: Incision was able to be closed after drainage of large hematoma on Wednesday. He has started PT. He will need short term rehab prior to going home. Tight glucose control and monitor for signs of infection (2) CKD (chronic kidney disease) stage 3, GFR 30-59 ml/min Is this a current diagnosis for this admission?: YesPlan: Patient needs to avoid nephrotoxic medications and dosages. Improved with hydration and discontinuing NSAIDS, and WALE He is already on an ARB (3) Diabetes mellitus type 1 Qualifiers: Diabetes mellitus complication status: without complication Qualified Code(s): E10.9 - Type 1 diabetes mellitus without complications Is this a current diagnosis for this admission?: YesPlan: Continue tight glucose control. On insulin and sliding scale (4) HTN (hypertension) Qualifiers: Hypertension type: essential hypertension Qualified Code(s): I10 - Essential (primary) hypertension Is this a current diagnosis for this admission?: YesPlan: We'll start patient on beta obed and continue ARB. Improvement noted in BP (5) History of fasciotomy Is this a current diagnosis for this admission?: YesPlan: Meticulous wound care by nursing staff. Progression of activity with PT (6) Blood loss anemia Is this a current diagnosis for this admission?: YesPlan: We will continue to monitor. (7) HLD (hyperlipidemia) Qualifiers: Hyperlipidemia type: unspecified Qualified Code(s): E78.5 - Hyperlipidemia, unspecified Is this a current diagnosis for this admission?: YesPlan: Continue statin. (8) CHRISTIANE (obstructive sleep apnea) Is this a current diagnosis for this admission?: YesPlan: Continue CPAP at at bedtime - Time Time Spent with patient: 25-34 minutes Critical Time spent with patient: 15-24 minutes Medications reviewed and adjusted accordingly: Yes Anticipated discharge: Acute Rehab Within: within 72 hours
[2016-11-13] MEDS: INSULIN LISPRO 100 UNIT/ML 3 ML VIAL SUBCUT SCH (17:27)
[2016-11-13] MEDS: INSULIN LISPRO 100 UNIT/ML 3 ML VIAL SUBCUT PRN (17:29)
[2016-11-13] MEDS: ACETAMINOPHEN 325 MG TABLET PO SCH (22:35)
[2016-11-13] MEDS: DIPHENHYDRAMINE HCL 25 MG CAPSULE PO PRN (22:36)
[2016-11-13] MEDS: TEMAZEPAM 7.5 MG CAPSULE PO SCH (22:36)
[2016-11-13] MEDS: INSULIN GLARGINE,HUM.REC.ANLOG 1,000 UNIT/10 ML UNIT SUBCUT SCH (22:37)
[2016-11-13] MEDS: HEPARIN SOD (PORCINE) 5,000 UNIT/ML 1 ML SYRINGE SUBCUT SCH (22:47)
[2016-11-14] MEDS: CEFAZOLIN 2 GM/D5W RTU 2 GM/50 ML RTUPB IV SCH ×3 (06:12→17:38)
[2016-11-14] MEDS: MULTIVITAMIN TABLET PO SCH (11:02)
[2016-11-14] MEDS: ATORVASTATIN CALCIUM 10 MG TABLET PO SCH (11:03)
[2016-11-14] MEDS: CALCIUM CARBONATE 500 MG TABLET PO SCH (11:03)
[2016-11-14] MEDS: CYCLOBENZAPRINE HCL 10 MG TABLET PO SCH ×3 (11:04→17:38)
[2016-11-14] MEDS: FERROUS SULFATE 325 MG TABLET PO SCH ×2 (11:04→17:38)
[2016-11-14] MEDS: METOPROLOL SUCCINATE 25 MG TAB.SR.24H PO SCH ×2 (11:05→21:53)
[2016-11-14] MEDS: DOCUSATE SODIUM 100 MG CAPSULE PO SCH ×2 (11:05→17:38)
[2016-11-14] MEDS: FUROSEMIDE 40 MG TABLET PO SCH (11:06)
[2016-11-14] MEDS: LOSARTAN POTASSIUM 25 MG TABLET PO SCH (11:06)
[2016-11-14] MEDS: HEPARIN SOD (PORCINE) 5,000 UNIT/ML 1 ML SYRINGE SUBCUT SCH ×2 (11:06→21:53)
[2016-11-14] MEDS: HYDROCORTISONE 1% CREAM 28.35 GM TP PRN (11:10)
[2016-11-14] MEDS: INSULIN LISPRO 100 UNIT/ML 3 ML VIAL SUBCUT PRN ×3 (11:51→21:53)
--- NOTE | 2016-11-14 12:56 | PDOC PROGRESS REPORT ---
Subjective Progress Note for:: 11/14/16 Subjective:: The patient was seen earlier today on rounds. The patient states that he does feel better today comparison to yesterday. The patient has had a bowel movement. The patient denies any nausea, vomiting, diarrhea, shortness of breath, dizziness, chest pain, heart palpitations, fevers, or chills. The patient has remained afebrile. Blood pressures have been in a good range. When prompted the patient voices no other concerns at this time. Review of systems: The rest of the review of systems is negative. Physical Exam Vital Signs: Temp Pulse Resp BP Pulse Ox 98.5 F 66 17 167/65 H 93 11/14/16 08:00 11/14/16 08:00 11/14/16 08:00 11/14/16 08:00 11/14/16 08:00 Pulse Oximeter Continuous Start: 11/10/16 18: 46 Freq: RTQ4 Status: Complete Document 11/12/16 04:00 SFL (Rec: 11/12/16 06:04 SFL [email or web address]) Pulse Oximetry Assessment Equipment Usage Equipment Standby Continuous SpO2 Machine # 3 Intake & Output 11/12/16 11/13/16 11/14/16 23:59 23:59 23:59 Intake Total 1325 890 0 Output Total 3000 1550 Balance -1675 -660 0 Weight 113.8 kg General appearance: PRESENT: no acute distress, cooperative, well-developed, well-nourished Head exam: PRESENT: atraumatic, normocephalic Eye exam: PRESENT: conjunctiva pink, EOMI, PERRLA. ABSENT: scleral icterus Ear exam: PRESENT: normal external ear exam Mouth exam: PRESENT: moist, tongue midline Neck exam: ABSENT: carotid bruit, JVD, lymphadenopathy, thyromegaly Respiratory exam: PRESENT: clear to auscultation sb. ABSENT: rales, rhonchi, wheezes Cardiovascular exam: PRESENT: RRR. ABSENT: diastolic murmur, rubs, systolic murmur Pulses: PRESENT: normal dorsalis pedis pul Vascular exam: PRESENT: normal capillary refill GI/Abdominal exam: PRESENT: normal bowel sounds, soft. ABSENT: distended, guarding, mass, organolmegaly, rebound, tenderness Rectal exam: PRESENT: deferred Extremities exam: PRESENT: full ROM. ABSENT: calf tenderness, clubbing, pedal edema Neurological exam: PRESENT: alert, awake, oriented to person, oriented to place , oriented to time, oriented to situation, CN II-XII grossly intact. ABSENT: motor sensory deficit Psychiatric exam: PRESENT: appropriate affect, normal mood. ABSENT: homicidal ideation, suicidal ideation Skin exam: PRESENT: dry, intact, warm. ABSENT: cyanosis, rash Additional comments: PRESENT: other - right lower leg fasciotomy site with dressing covering right lower leg Results Laboratory Results: 11/13/16 03:49 11/13/16 03:49 11/10/16 04:27 Creatine Kinase 443 H Impressions: Tibia/Fibula X-Ray 11/08/16 15:33 IMPRESSION: NEGATIVE STUDY OF THE RIGHT TIBIA AND FIBULA. NO RADIOGRAPHIC EVIDENCE OF ACUTE INJURY. Assessment & Plan - Diagnosis (1) Compartment syndrome of right lower extremity Qualifiers: Encounter type: initial encounter Qualified Code(s): T79.A21A - Traumatic compartment syndrome of right lower extremity, initial encounter Is this a current diagnosis for this admission?: YesPlan: Incision was able to be closed after drainage of large hematoma on Wednesday. He has started PT. He will need short term rehab prior to going home. Tight glucose control and monitor for signs of infection. (2) Blood loss anemia Is this a current diagnosis for this admission?: Yes (3) CKD (chronic kidney disease) stage 3, GFR 30-59 ml/min Is this a current diagnosis for this admission?: YesPlan: Patient needs to avoid nephrotoxic medications and dosages. Improved with hydration and discontinuing NSAIDS, and WALE He is already on an ARB (4) Diabetes mellitus type 1 Qualifiers: Diabetes mellitus complication status: without complication Qualified Code(s): E10.9 - Type 1 diabetes mellitus without complications Is this a current diagnosis for this admission?: YesPlan: Continue tight glucose control. On insulin and sliding scale (5) HLD (hyperlipidemia) Qualifiers: Hyperlipidemia type: unspecified Qualified Code(s): E78.5 - Hyperlipidemia, unspecified Is this a current diagnosis for this admission?: Yes (6) HTN (hypertension) Qualifiers: Hypertension type: essential hypertension Qualified Code(s): I10 - Essential (primary) hypertension Is this a current diagnosis for this admission?: YesPlan: We'll start patient on beta obed and continue ARB. Improvement noted in BP (7) CHRISTIANE (obstructive sleep apnea) Is this a current diagnosis for this admission?: Yes (8) History of fasciotomy Is this a current diagnosis for this admission?: Yes - Time Time Spent with patient: 25-34 minutes Medications reviewed and adjusted accordingly: Yes Anticipated discharge: Home, SNF, Acute Rehab Within: within 24 hours
[2016-11-14] MEDS: INSULIN LISPRO 100 UNIT/ML 3 ML VIAL SUBCUT SCH (17:38)
[2016-11-14] MEDS: INSULIN GLARGINE,HUM.REC.ANLOG 1,000 UNIT/10 ML UNIT SUBCUT SCH (21:52)
[2016-11-14] MEDS: DIPHENHYDRAMINE HCL 25 MG CAPSULE PO PRN (21:53)
[2016-11-14] MEDS: TEMAZEPAM 7.5 MG CAPSULE PO SCH (21:53)
[2016-11-14] MEDS: ACETAMINOPHEN 325 MG TABLET PO SCH (21:53)
[2016-11-15] MEDS: CEFAZOLIN 2 GM/D5W RTU 2 GM/50 ML RTUPB IV SCH ×5 (06:09→23:43)
[2016-11-15] MEDS ORDERED: LOSARTAN POTASSIUM 25 MG TABLET PO SCH (10:00)
--- NOTE | 2016-11-15 10:45 | PDOC PROGRESS REPORT ---
Subjective Progress Note for:: 11/15/16 Subjective:: The patient was seen earlier today on rounds. The patient states that he does feel a little better today comparison to yesterday. The patient has had a bowel movement. Patient is frustrated with the length of his hospital stay. The patient denies any nausea, vomiting, diarrhea, shortness of breath, dizziness, chest pain, heart palpitations, fevers, or chills. The patient has remained afebrile. Blood pressures have been in a good range. When prompted the patient voices no other concerns at this time. Review of systems: The rest of the review of systems is negative. Physical Exam Vital Signs: Temp Pulse Resp BP Pulse Ox 98.7 F 64 19 154/72 H 96 11/15/16 08:00 11/15/16 08:00 11/15/16 08:00 11/15/16 08:00 11/15/16 08:00 Intake & Output 11/13/16 11/14/16 11/15/16 23:59 23:59 23:59 Intake Total 890 650 480 Output Total 1550 1200 200 Balance -660 -550 280 Weight 113.8 kg 113.5 kg General appearance: PRESENT: no acute distress, cooperative, well-developed, well-nourished Head exam: PRESENT: atraumatic, normocephalic Eye exam: PRESENT: conjunctiva pink, EOMI, PERRLA. ABSENT: scleral icterus Ear exam: PRESENT: normal external ear exam Mouth exam: PRESENT: moist, tongue midline Neck exam: ABSENT: carotid bruit, JVD, lymphadenopathy, thyromegaly Respiratory exam: PRESENT: clear to auscultation sb. ABSENT: rales, rhonchi, wheezes Cardiovascular exam: PRESENT: RRR. ABSENT: diastolic murmur, rubs, systolic murmur Pulses: PRESENT: normal dorsalis pedis pul Vascular exam: PRESENT: normal capillary refill GI/Abdominal exam: PRESENT: normal bowel sounds, soft. ABSENT: distended, guarding, mass, organolmegaly, rebound, tenderness Rectal exam: PRESENT: deferred Extremities exam: PRESENT: full ROM. ABSENT: calf tenderness, clubbing, pedal edema Neurological exam: PRESENT: alert, awake, oriented to person, oriented to place , oriented to time, oriented to situation, CN II-XII grossly intact. ABSENT: motor sensory deficit Psychiatric exam: PRESENT: appropriate affect, normal mood. ABSENT: homicidal ideation, suicidal ideation Skin exam: PRESENT: dry, intact, warm. ABSENT: cyanosis, rash Additional comments: PRESENT: other - right lower leg fasciotomy site with dressing covering right lower leg Results Laboratory Results: 11/13/16 03:49 11/13/16 03:49 11/10/16 04:27 Creatine Kinase 443 H Impressions: Tibia/Fibula X-Ray 11/08/16 15:33 IMPRESSION: NEGATIVE STUDY OF THE RIGHT TIBIA AND FIBULA. NO RADIOGRAPHIC EVIDENCE OF ACUTE INJURY. Assessment & Plan - Diagnosis (1) Compartment syndrome of right lower extremity Qualifiers: Encounter type: initial encounter Qualified Code(s): T79.A21A - Traumatic compartment syndrome of right lower extremity, initial encounter Is this a current diagnosis for this admission?: YesPlan: Incision was able to be closed after drainage of large hematoma on Wednesday. He has started PT. He will need short term rehab prior to going home. Tight glucose control and monitor for signs of infection. (2) Blood loss anemia Is this a current diagnosis for this admission?: Yes (3) CKD (chronic kidney disease) stage 3, GFR 30-59 ml/min Is this a current diagnosis for this admission?: YesPlan: Patient needs to avoid nephrotoxic medications and dosages. Improved with hydration and discontinuing NSAIDS, and WALE He is already on an ARB (4) Diabetes mellitus type 1 Qualifiers: Diabetes mellitus complication status: without complication Qualified Code(s): E10.9 - Type 1 diabetes mellitus without complications Is this a current diagnosis for this admission?: YesPlan: Continue tight glucose control. On insulin and sliding scale (5) HLD (hyperlipidemia) Qualifiers: Hyperlipidemia type: unspecified Qualified Code(s): E78.5 - Hyperlipidemia, unspecified Is this a current diagnosis for this admission?: Yes (6) HTN (hypertension) Qualifiers: Hypertension type: essential hypertension Qualified Code(s): I10 - Essential (primary) hypertension Is this a current diagnosis for this admission?: YesPlan: Have start patient on beta obed and continue ARB. Improvement noted in BP (7) CHRISTIANE (obstructive sleep apnea) Is this a current diagnosis for this admission?: Yes (8) History of fasciotomy Is this a current diagnosis for this admission?: Yes - Time Time Spent with patient: 25-34 minutes Medications reviewed and adjusted accordingly: Yes Anticipated discharge: SNF Within: when bed available
[2016-11-15] MEDS: CYCLOBENZAPRINE HCL 10 MG TABLET PO SCH ×3 (10:49→18:14)
[2016-11-15] MEDS: MULTIVITAMIN TABLET PO SCH (10:50)
[2016-11-15] MEDS: FUROSEMIDE 40 MG TABLET PO SCH (10:50)
[2016-11-15] MEDS: METOPROLOL SUCCINATE 25 MG TAB.SR.24H PO SCH ×2 (10:51→23:41)
[2016-11-15] MEDS: LOSARTAN POTASSIUM 50 MG TABLET PO SCH ×2 (10:51→23:36)
[2016-11-15] MEDS: DOCUSATE SODIUM 100 MG CAPSULE PO SCH ×2 (10:52→17:46)
[2016-11-15] MEDS: ATORVASTATIN CALCIUM 10 MG TABLET PO SCH (10:52)
[2016-11-15] MEDS: HEPARIN SOD (PORCINE) 5,000 UNIT/ML 1 ML SYRINGE SUBCUT SCH ×2 (10:52→23:44)
[2016-11-15] MEDS: FERROUS SULFATE 325 MG TABLET PO SCH ×2 (10:52→17:46)
[2016-11-15] MEDS: CALCIUM CARBONATE 500 MG TABLET PO SCH (10:52)
--- NOTE | 2016-11-15 12:33 | PDOC PROGRESS REPORT ---
Subjective Subjective:: Patient states he is doing better but still has difficulty with physical therapy secondary to the pain. Denies fever chills or sweats. Physical Exam Vital Signs: Temp Pulse Resp BP Pulse Ox 98.6 F 71 19 162/59 H 97 11/15/16 12:00 11/15/16 12:00 11/15/16 12:00 11/15/16 12:00 11/15/16 12:00 Pulse Oximeter Continuous Start: 11/10/16 18: 46 Freq: RTQ4 Status: Complete Document 11/12/16 04:00 SFL (Rec: 11/12/16 06:04 SFL [email or web address]) Pulse Oximetry Assessment Equipment Usage Equipment Standby Continuous SpO2 Machine # 3 Intake & Output 11/14/16 11/15/16 11/16/16 06:59 06:59 06:59 Intake Total 890 1130 Output Total 1150 1400 Balance -260 -270 Weight 113.8 kg 113.5 kg Musculoskeletal exam: PRESENT: other - Right lower extremity: Dressing change. Area of necrosis medially no erythema or drainage. Compartments soft and compressible. Lateral incision healing mild incisional erythema distally. Intact plantar flexion/dorsiflexion. Cap refill less than 2 seconds. Dorsalis pedis pulses 1+. Results Laboratory Results: 11/13/16 03:49 11/13/16 03:49 11/10/16 04:27 Creatine Kinase 443 H Impressions: Tibia/Fibula X-Ray 11/08/16 15:33 IMPRESSION: NEGATIVE STUDY OF THE RIGHT TIBIA AND FIBULA. NO RADIOGRAPHIC EVIDENCE OF ACUTE INJURY. Assessment & Plan - Diagnosis (1) Compartment syndrome of right lower extremity Qualifiers: Encounter type: initial encounter Qualified Code(s): T79.A21A - Traumatic compartment syndrome of right lower extremity, initial encounter Is this a current diagnosis for this admission?: YesPlan: Status post right leg fasciotomy #1 continue physical therapy weightbearing as tolerated #2 continue antibiotics prophylactically #3 discharge planning to alf facility when bed available
[2016-11-15] MEDS: OXYCODONE-ACETAMINOPHEN 5-325 MG TABLET PO PRN (13:06)
[2016-11-15] MEDS: INSULIN LISPRO 100 UNIT/ML 3 ML VIAL SUBCUT SCH (17:46)
[2016-11-15] MEDS: INSULIN LISPRO 100 UNIT/ML 3 ML VIAL SUBCUT PRN ×2 (17:54→23:44)
[2016-11-15] MEDS: ACETAMINOPHEN 325 MG TABLET PO SCH (23:43)
[2016-11-15] MEDS: TEMAZEPAM 7.5 MG CAPSULE PO SCH (23:43)
[2016-11-15] MEDS: INSULIN GLARGINE,HUM.REC.ANLOG 1,000 UNIT/10 ML UNIT SUBCUT SCH (23:43)
[2016-11-16 06:02] LABS: HEMATOCRIT 27.3 % (37.9-51.0); HEMOGLOBIN 9.3 g/dL (13.5-17.0); HGB HCT DIFFERENCE 0.6; MEAN CORPUSCULAR HEMOGLOBIN 31.6 pg (27.0-33.4); MEAN CORPUSCULAR VOLUME 93 fl (80-97); RED BLOOD COUNT 2.94 10^6/uL (4.35-5.55); RED CELL DISTRIBUTION WIDTH 13.1 % (11.5-14.0); WHITE BLOOD COUNT 8.4 10^3/uL (4.0-10.5)
[2016-11-16 06:24] LABS: ANION GAP 10 (5-19); BLOOD UREA NITROGEN 25 mg/dL (7-20); CALCIUM 8.8 mg/dL (8.4-10.2); CARBON DIOXIDE 26 mmol/L (22-30); CHLORIDE 106 mmol/L (98-107); CREATININE RESULT 1.09 mg/dL (0.52-1.25); GLUCOSE 174 mg/dL (75-110); MAGNESIUM 2.2 mg/dL (1.6-2.3); POTASSIUM 3.9 mmol/L (3.6-5.0); SODIUM 141.8 mmol/L (137-145)
--- NOTE | 2016-11-16 08:00 | PDOC PROGRESS REPORT ---
Subjective Progress Note for:: 11/16/16 Subjective:: Patient seen this morning. States pain is controlled. Did have some difficulty sleeping. Continue physical therapy. Denies fever. Physical Exam Vital Signs: Temp Pulse Resp BP Pulse Ox 98.9 F 66 19 143/55 H 95 11/16/16 00:04 11/16/16 00:04 11/16/16 00:04 11/16/16 00:04 11/16/16 00:04 Pulse Oximeter Continuous Start: 11/10/16 18: 46 Freq: RTQ4 Status: Complete Document 11/12/16 04:00 SFL (Rec: 11/12/16 06:04 SFL [email or web address]) Pulse Oximetry Assessment Equipment Usage Equipment Standby Continuous SpO2 Machine # 3 Intake & Output 11/15/16 11/16/16 11/17/16 06:59 06:59 06:59 Intake Total 1130 1640 Output Total 1400 1550 Balance -270 90 Weight 113.5 kg Musculoskeletal exam: PRESENT: other - Right lower extremity: Lateral incision healing no erythema or drainage. Intact plantar flexion/dorsiflexion. Dorsalis pedis pulses 1+. Cap refill less than 2 seconds. No sensory deficits. Intact plantar flexion/dorsiflexion. Necrosis along the superficial dermal layer medially with surrounding abrasion. Results Laboratory Results: 11/16/16 05:35 11/16/16 05:35 11/16/16 11/16/16 05:35 05:35 WBC 8.4 RBC 2.94 L Hgb 9.3 L Hct 27.3 L MCV 93 MCH 31.6 MCHC 34.0 RDW 13.1 Plt Count 170 Sodium 141.8 Potassium 3.9 Chloride 106 Carbon Dioxide 26 Anion Gap 10 BUN 25 H Creatinine 1.09 Est GFR ( Amer) > 60 Est GFR (Non-Af Amer) > 60 Glucose 174 H Calcium 8.8 Magnesium 2.2 11/10/16 04:27 Creatine Kinase 443 H Impressions: Tibia/Fibula X-Ray 11/08/16 15:33 IMPRESSION: NEGATIVE STUDY OF THE RIGHT TIBIA AND FIBULA. NO RADIOGRAPHIC EVIDENCE OF ACUTE INJURY. Assessment & Plan - Diagnosis (1) Compartment syndrome of right lower extremity Qualifiers: Encounter type: initial encounter Qualified Code(s): T79.A21A - Traumatic compartment syndrome of right lower extremity, initial encounter Is this a current diagnosis for this admission?: YesPlan: Patient doing well. At this point will continue daily dressing changes. Weightbearing as tolerated to the right lower external. He has been started on heparin for DVT prophylaxis. Will continue IV antibiotics prophylactically. Patient stable for discharge to assisted facility when bed available. - Time Anticipated discharge: SNF Within: within 24 hours
[2016-11-16] MEDS ORDERED: AMLODIPINE BESYLATE 5 MG TABLET PO SCH (10:00)
[2016-11-16] MEDS: METOPROLOL SUCCINATE 25 MG TAB.SR.24H PO SCH ×2 (11:04→22:38)
[2016-11-16] MEDS: ATORVASTATIN CALCIUM 10 MG TABLET PO SCH (11:04)
[2016-11-16] MEDS: CYCLOBENZAPRINE HCL 10 MG TABLET PO SCH ×2 (11:04→17:43)
[2016-11-16] MEDS: FUROSEMIDE 40 MG TABLET PO SCH (11:05)
[2016-11-16] MEDS: MULTIVITAMIN TABLET PO SCH (11:05)
[2016-11-16] MEDS: CALCIUM CARBONATE 500 MG TABLET PO SCH (11:05)
[2016-11-16] MEDS: LOSARTAN POTASSIUM 50 MG TABLET PO SCH ×2 (11:06→22:39)
[2016-11-16] MEDS: FERROUS SULFATE 325 MG TABLET PO SCH ×2 (11:06→17:43)
[2016-11-16] MEDS: DOCUSATE SODIUM 100 MG CAPSULE PO SCH ×2 (11:06→17:43)
[2016-11-16] MEDS: HEPARIN SOD (PORCINE) 5,000 UNIT/ML 1 ML SYRINGE SUBCUT SCH ×2 (11:36→22:38)
[2016-11-16] MEDS: DIPHENHYDRAMINE HCL 25 MG CAPSULE PO PRN ×3 (11:36→22:39)
--- NOTE | 2016-11-16 12:47 | PDOC PROGRESS REPORT ---
Subjective Progress Note for:: 11/16/16 Subjective:: The patient was seen earlier today on rounds. Patient is a rambling historian. But from the best history I can gather the patient is improving. The patient has had a bowel movement. Patient is frustrated with the length of his hospital stay. The patient denies any nausea, vomiting, diarrhea, shortness of breath, dizziness, chest pain, heart palpitations, fevers, or chills. The patient has remained afebrile. Blood pressures have been elevated but in a decent range. When prompted the patient voices no other concerns at this time. Review of systems: The rest of the review of systems is negative. Physical Exam Vital Signs: Temp Pulse Resp BP Pulse Ox 98.4 F 72 18 180/74 H 97 11/16/16 04:17 11/16/16 11:30 11/16/16 11:30 11/16/16 11:30 11/16/16 11:30 Intake & Output 11/14/16 11/15/16 11/16/16 23:59 23:59 23:59 Intake Total 650 2120 480 Output Total 1200 1325 525 Balance -550 795 -45 Weight 113.5 kg General appearance: PRESENT: no acute distress, cooperative, well-developed, well-nourished Head exam: PRESENT: atraumatic, normocephalic Eye exam: PRESENT: conjunctiva pink, EOMI, PERRLA. ABSENT: scleral icterus Ear exam: PRESENT: normal external ear exam Mouth exam: PRESENT: moist, tongue midline Neck exam: ABSENT: carotid bruit, JVD, lymphadenopathy, thyromegaly Respiratory exam: PRESENT: clear to auscultation sb. ABSENT: rales, rhonchi, wheezes Cardiovascular exam: PRESENT: RRR. ABSENT: diastolic murmur, rubs, systolic murmur Pulses: PRESENT: normal dorsalis pedis pul Vascular exam: PRESENT: normal capillary refill GI/Abdominal exam: PRESENT: normal bowel sounds, soft. ABSENT: distended, guarding, mass, organolmegaly, rebound, tenderness Rectal exam: PRESENT: deferred Extremities exam: PRESENT: full ROM. ABSENT: calf tenderness, clubbing, pedal edema Neurological exam: PRESENT: alert, awake, oriented to person, oriented to place , oriented to time, oriented to situation, CN II-XII grossly intact. ABSENT: motor sensory deficit Psychiatric exam: PRESENT: appropriate affect, normal mood. ABSENT: homicidal ideation, suicidal ideation Skin exam: PRESENT: dry, intact, warm. ABSENT: cyanosis, rash Additional comments: PRESENT: other - right lower leg fasciotomy site with dressing covering right lower leg Results Laboratory Results: 11/16/16 05:35 11/16/16 05:35 11/16/16 11/16/16 05:35 05:35 WBC 8.4 RBC 2.94 L Hgb 9.3 L Hct 27.3 L MCV 93 MCH 31.6 MCHC 34.0 RDW 13.1 Plt Count 170 Sodium 141.8 Potassium 3.9 Chloride 106 Carbon Dioxide 26 Anion Gap 10 BUN 25 H Creatinine 1.09 Est GFR ( Amer) > 60 Est GFR (Non-Af Amer) > 60 Glucose 174 H Calcium 8.8 Magnesium 2.2 11/10/16 04:27 Creatine Kinase 443 H Impressions: Tibia/Fibula X-Ray 11/08/16 15:33 IMPRESSION: NEGATIVE STUDY OF THE RIGHT TIBIA AND FIBULA. NO RADIOGRAPHIC EVIDENCE OF ACUTE INJURY. Assessment & Plan - Diagnosis (1) Compartment syndrome of right lower extremity Qualifiers: Encounter type: initial encounter Qualified Code(s): T79.A21A - Traumatic compartment syndrome of right lower extremity, initial encounter Is this a current diagnosis for this admission?: YesPlan: Incision was able to be closed after drainage of large hematoma on Wednesday. He has started PT. He will need short term rehab prior to going home. Tight glucose control and monitor for signs of infection. (2) Blood loss anemia Is this a current diagnosis for this admission?: Yes (3) CKD (chronic kidney disease) stage 3, GFR 30-59 ml/min Is this a current diagnosis for this admission?: YesPlan: Patient needs to avoid nephrotoxic medications and dosages. Improved with hydration and discontinuing NSAIDS, and WALE He is already on an ARB (4) Diabetes mellitus type 1 Qualifiers: Diabetes mellitus complication status: without complication Qualified Code(s): E10.9 - Type 1 diabetes mellitus without complications Is this a current diagnosis for this admission?: YesPlan: Continue tight glucose control. On insulin and sliding scale (5) HLD (hyperlipidemia) Qualifiers: Hyperlipidemia type: unspecified Qualified Code(s): E78.5 - Hyperlipidemia, unspecified Is this a current diagnosis for this admission?: Yes (6) HTN (hypertension) Qualifiers: Hypertension type: essential hypertension Qualified Code(s): I10 - Essential (primary) hypertension Is this a current diagnosis for this admission?: YesPlan: The patient's blood pressures are still elevated. Have maximize current therapies and will add Norvasc. (7) CHRISTIANE (obstructive sleep apnea) Is this a current diagnosis for this admission?: Yes (8) History of fasciotomy Is this a current diagnosis for this admission?: Yes - Time Time Spent with patient: 25-34 minutes Medications reviewed and adjusted accordingly: Yes Anticipated discharge: SNF Within: when bed available
[2016-11-16] MEDS: OXYCODONE-ACETAMINOPHEN 5-325 MG TABLET PO PRN (12:54)
[2016-11-16] MEDS: INSULIN LISPRO 100 UNIT/ML 3 ML VIAL SUBCUT PRN ×2 (12:56→22:38)
[2016-11-16] MEDS: INSULIN LISPRO 100 UNIT/ML 3 ML VIAL SUBCUT SCH (17:47)
[2016-11-16] MEDS: INSULIN GLARGINE,HUM.REC.ANLOG 1,000 UNIT/10 ML UNIT SUBCUT SCH (22:38)
[2016-11-16] MEDS: AMLODIPINE BESYLATE 5 MG TABLET PO SCH (22:38)
[2016-11-16] MEDS: ACETAMINOPHEN 325 MG TABLET PO SCH (22:39)
[2016-11-17] MEDS: HEPARIN SOD (PORCINE) 5,000 UNIT/ML 1 ML SYRINGE SUBCUT SCH ×2 (09:27→21:29)
[2016-11-17] MEDS: AMLODIPINE BESYLATE 5 MG TABLET PO SCH ×2 (09:28→21:28)
[2016-11-17] MEDS: FERROUS SULFATE 325 MG TABLET PO SCH ×2 (09:28→17:53)
[2016-11-17] MEDS: METOPROLOL SUCCINATE 25 MG TAB.SR.24H PO SCH ×2 (09:29→21:28)
[2016-11-17] MEDS: FUROSEMIDE 40 MG TABLET PO SCH (09:29)
[2016-11-17] MEDS: ATORVASTATIN CALCIUM 10 MG TABLET PO SCH (09:29)
[2016-11-17] MEDS: CYCLOBENZAPRINE HCL 10 MG TABLET PO SCH ×3 (09:29→17:53)
[2016-11-17] MEDS: DOCUSATE SODIUM 100 MG CAPSULE PO SCH ×2 (09:29→17:53)
[2016-11-17] MEDS: MULTIVITAMIN TABLET PO SCH (09:29)
[2016-11-17] MEDS: CALCIUM CARBONATE 500 MG TABLET PO SCH (09:29)
[2016-11-17] MEDS: LOSARTAN POTASSIUM 50 MG TABLET PO SCH ×2 (09:29→21:27)
[2016-11-17] MEDS: OXYCODONE-ACETAMINOPHEN 5-325 MG TABLET PO PRN ×2 (10:50→21:29)
[2016-11-17] MEDS: INSULIN LISPRO 100 UNIT/ML 3 ML VIAL SUBCUT PRN ×2 (10:54→16:26)
--- NOTE | 2016-11-17 16:40 | PDOC PROGRESS REPORT ---
Subjective Progress Note for:: 11/17/16 Subjective:: The patient was seen earlier today on rounds. Patient is a rambling historian. But from the best history I can gather the patient is improving. The patient has had a bowel movement. Patient is frustrated with the length of his hospital stay and distal issues with his hospital room. The patient denies any nausea, vomiting, diarrhea, shortness of breath, dizziness, chest pain, heart palpitations, fevers, or chills. The patient has remained afebrile. Blood pressures have been elevated but in a decent range. When prompted the patient voices no other concerns at this time. Review of systems: The rest of the review of systems is negative. Physical Exam Vital Signs: Temp Pulse Resp BP Pulse Ox 98.2 F 68 18 140/64 H 98 11/17/16 15:53 11/17/16 15:53 11/17/16 15:53 11/17/16 15:53 11/17/16 15:53 Intake & Output 11/15/16 11/16/16 11/17/16 23:59 23:59 23:59 Intake Total 2120 840 10 Output Total 1325 825 Balance 795 15 10 Weight 113.5 kg General appearance: PRESENT: no acute distress, cooperative, well-developed, well-nourished Head exam: PRESENT: atraumatic, normocephalic Eye exam: PRESENT: conjunctiva pink, EOMI, PERRLA. ABSENT: scleral icterus Ear exam: PRESENT: normal external ear exam Mouth exam: PRESENT: moist, tongue midline Neck exam: ABSENT: carotid bruit, JVD, lymphadenopathy, thyromegaly Respiratory exam: PRESENT: clear to auscultation sb. ABSENT: rales, rhonchi, wheezes Cardiovascular exam: PRESENT: RRR. ABSENT: diastolic murmur, rubs, systolic murmur Pulses: PRESENT: normal dorsalis pedis pul Vascular exam: PRESENT: normal capillary refill GI/Abdominal exam: PRESENT: normal bowel sounds, soft. ABSENT: distended, guarding, mass, organolmegaly, rebound, tenderness Rectal exam: PRESENT: deferred Extremities exam: PRESENT: full ROM. ABSENT: calf tenderness, clubbing, pedal edema Neurological exam: PRESENT: alert, awake, oriented to person, oriented to place , oriented to time, oriented to situation, CN II-XII grossly intact. ABSENT: motor sensory deficit Psychiatric exam: PRESENT: appropriate affect, normal mood. ABSENT: homicidal ideation, suicidal ideation Skin exam: PRESENT: dry, intact, warm. ABSENT: cyanosis, rash Additional comments: PRESENT: other - right lower leg fasciotomy site with dressing covering right lower leg Results Laboratory Results: 11/16/16 05:35 11/16/16 05:35 11/10/16 04:27 Creatine Kinase 443 H Impressions: Tibia/Fibula X-Ray 11/08/16 15:33 IMPRESSION: NEGATIVE STUDY OF THE RIGHT TIBIA AND FIBULA. NO RADIOGRAPHIC EVIDENCE OF ACUTE INJURY. Assessment & Plan - Diagnosis (1) Compartment syndrome of right lower extremity Qualifiers: Encounter type: initial encounter Qualified Code(s): T79.A21A - Traumatic compartment syndrome of right lower extremity, initial encounter Is this a current diagnosis for this admission?: YesPlan: Incision was able to be closed after drainage of large hematoma on Wednesday. He has started PT. He will need short term rehab prior to going home. Tight glucose control and monitor for signs of infection. (2) Blood loss anemia Is this a current diagnosis for this admission?: Yes (3) CKD (chronic kidney disease) stage 3, GFR 30-59 ml/min Is this a current diagnosis for this admission?: YesPlan: Patient needs to avoid nephrotoxic medications and dosages. Improved with hydration and discontinuing NSAIDS, and WALE He is already on an ARB (4) Diabetes mellitus type 1 Qualifiers: Diabetes mellitus complication status: without complication Qualified Code(s): E10.9 - Type 1 diabetes mellitus without complications Is this a current diagnosis for this admission?: YesPlan: Continue tight glucose control. On insulin and sliding scale (5) HLD (hyperlipidemia) Qualifiers: Hyperlipidemia type: unspecified Qualified Code(s): E78.5 - Hyperlipidemia, unspecified Is this a current diagnosis for this admission?: Yes (6) HTN (hypertension) Qualifiers: Hypertension type: essential hypertension Qualified Code(s): I10 - Essential (primary) hypertension Is this a current diagnosis for this admission?: YesPlan: The patient's blood pressures are still elevated. Have maximize current therapies and added Norvasc. (7) CHRISTIANE (obstructive sleep apnea) Is this a current diagnosis for this admission?: Yes (8) History of fasciotomy Is this a current diagnosis for this admission?: Yes - Time Time Spent with patient: 25-34 minutes Medications reviewed and adjusted accordingly: Yes Anticipated discharge: Acute Rehab Within: when bed available
--- NOTE | 2016-11-17 17:49 | PDOC PROGRESS REPORT ---
Subjective Progress Note for:: 11/17/16 Subjective:: Patient states she is slowly improving but continues to have some difficulty with physical therapy. He is still awaiting [facility] facility. Denies fever chills or sweats. Physical Exam Vital Signs: Temp Pulse Resp BP Pulse Ox 98.2 F 68 18 140/64 H 98 11/17/16 15:53 11/17/16 15:53 11/17/16 15:53 11/17/16 15:53 11/17/16 15:53 Pulse Oximeter Continuous Start: 11/10/16 18: 46 Freq: RTQ4 Status: Complete Document 11/12/16 04:00 [facility] (Rec: 11/12/16 06:04 [facility] [email or web address]) Pulse Oximetry Assessment Equipment Usage Equipment Standby Continuous SpO2 Machine # 3 Intake & Output 11/16/16 11/17/16 11/18/16 06:59 06:59 06:59 Intake Total 1640 840 10 Output Total 1550 400 Balance 90 440 10 Musculoskeletal exam: PRESENT: other - Right lower extremity: Dressing change today. A necrosis along the medial aspect of the leg approximately 9 cm x 6 cm. Lateral incision healing no erythema or drainage. No palpable fluctuance. Intact plantar flexion/dorsiflexion. Dorsalis pedis pulses 1+. Cap refill less than 2 seconds. No sensory deficits. Results Laboratory Results: 11/16/16 05:35 11/16/16 05:35 11/10/16 04:27 Creatine Kinase 443 H Impressions: Tibia/Fibula X-Ray 11/08/16 15:33 IMPRESSION: NEGATIVE STUDY OF THE RIGHT TIBIA AND FIBULA. NO RADIOGRAPHIC EVIDENCE OF ACUTE INJURY. Assessment & Plan - Diagnosis (1) Compartment syndrome of right lower extremity Qualifiers: Encounter type: initial encounter Qualified Code(s): T79.A21A - Traumatic compartment syndrome of right lower extremity, initial encounter Is this a current diagnosis for this admission?: YesPlan: Patient continues to have necrosis medially where his previous blisters were. The lateral fasciotomy incision is healing appropriately. Patient's IV antibiotics were somehow discontinued and will be restarted as a prophylactic measure. Currently there is no signs or symptoms of infection however but given his history of diabetes and the wounds he does have an increased risk of infection. We will continue heparin for DVT prophylaxis.
[2016-11-17] MEDS: INSULIN LISPRO 100 UNIT/ML 3 ML VIAL SUBCUT SCH (18:09)
[2016-11-17] MEDS: CEFAZOLIN 2 GM/D5W RTU 2 GM/50 ML RTUPB IV SCH (21:25)
[2016-11-17] MEDS: ACETAMINOPHEN 325 MG TABLET PO SCH (21:26)
[2016-11-17] MEDS: INSULIN GLARGINE,HUM.REC.ANLOG 1,000 UNIT/10 ML UNIT SUBCUT SCH (21:47)
[2016-11-17] MEDS ORDERED: TEMAZEPAM 7.5 MG CAPSULE PO SCH (22:00)
[2016-11-18] MEDS: CEFAZOLIN 2 GM/D5W RTU 2 GM/50 ML RTUPB IV SCH ×3 (05:15→14:04)
[2016-11-18] MEDS: HEPARIN SOD (PORCINE) 5,000 UNIT/ML 1 ML SYRINGE SUBCUT SCH (09:33)
[2016-11-18] MEDS: CYCLOBENZAPRINE HCL 10 MG TABLET PO SCH ×3 (09:34→17:34)
[2016-11-18] MEDS: MULTIVITAMIN TABLET PO SCH (09:34)
[2016-11-18] MEDS: LOSARTAN POTASSIUM 50 MG TABLET PO SCH (09:34)
[2016-11-18] MEDS: ATORVASTATIN CALCIUM 10 MG TABLET PO SCH (09:34)
[2016-11-18] MEDS: FUROSEMIDE 40 MG TABLET PO SCH (09:34)
[2016-11-18] MEDS: METOPROLOL SUCCINATE 25 MG TAB.SR.24H PO SCH (09:35)
[2016-11-18] MEDS: FERROUS SULFATE 325 MG TABLET PO SCH ×2 (09:35→17:34)
[2016-11-18] MEDS: DOCUSATE SODIUM 100 MG CAPSULE PO SCH ×2 (09:35→17:34)
[2016-11-18] MEDS: CALCIUM CARBONATE 500 MG TABLET PO SCH (09:35)
[2016-11-18] MEDS: AMLODIPINE BESYLATE 5 MG TABLET PO SCH (09:36)
[2016-11-18] MEDS: BISACODYL 5 MG TABEC PO PRN (11:18)
[2016-11-18] MEDS: INSULIN LISPRO 100 UNIT/ML 3 ML VIAL SUBCUT PRN ×2 (11:26→16:25)
--- NOTE | 2016-11-18 11:35 | PDOC TRANSFER SUMMARY ---
General - Admit/Disc Date/PCP Admission Date/Primary Care Provider: 11/08/16 21:10 NAHOMY BERNSTEIN MD Discharge Date: 11/18/16 - Discharge Diagnosis (1) Compartment syndrome of right lower extremity Is this a current diagnosis for this admission?: YesSummary: Local wound care per ortho with rae wrap to right lower extremity. Follow up with Dr So in 7-10 days (2) Diabetes mellitus type 1 Is this a current diagnosis for this admission?: Yes (3) CKD (chronic kidney disease) stage 3, GFR 30-59 ml/min Is this a current diagnosis for this admission?: YesSummary: Stable avoid nephrotoxic drugs and dosages (4) HTN (hypertension) Is this a current diagnosis for this admission?: YesSummary: normotensive continue current meds (5) History of fasciotomy Is this a current diagnosis for this admission?: YesSummary: Local wound care to right lower leg (6) Blood loss anemia Is this a current diagnosis for this admission?: YesSummary: Stable and improving (7) HLD (hyperlipidemia) Is this a current diagnosis for this admission?: YesSummary: Continue statin (8) CHRISTIANE (obstructive sleep apnea) Is this a current diagnosis for this admission?: YesSummary: CPAP at - Additional Information Resuscitation Status: Full Code Discharge Diet: As Tolerated Discharge Activity: Balance Activity w/Rest, No Driving, Slowly Increase Activity, Supervised Activity Home Medications: Acetaminophen [Tylenol] 650 mg PO QHS 11/09/16 Atorvastatin Calcium 10 mg PO DAILY 11/09/16 Calcium Carbonate [Calcium] 600 mg PO DAILY 11/09/16 Cyanocobalamin (Vitamin B-12) [Vitamin B-12 100 mcg Tablet] 100 mcg PO DAILY Cyclobenzaprine HCl [Flexeril 5 mg Tablet] 5 mg PO TID 11/09/16 Docusate Sodium 100 mg PO BID 11/09/16 Ferrous Sulfate [Iron] 325 mg PO BID 11/09/16 Furosemide [Lasix] 40 mg PO BID@08,20 11/09/16 Insulin Glargine,Hum.rec.anlog [Lantus] 30 units SQ QHS 11/09/16 Insulin Lispro [Humalog Insulin (Lispro) 100 unit/mL] 0 unit SUBCUT DAILY@17 Lisinopril [Prinivil 2.5 mg Tablet] 2.5 mg PO DAILY 11/09/16 Losartan Potassium [Cozaar 25 mg Tablet] 25 mg PO DAILY 11/09/16 Multivitamin [Multivitamins] 1 each PO DAILY 11/09/16 Sildenafil Citrate [Viagra] 100 mg PO ASDIR PRN 11/09/16 Temazepam [Restoril 7.5 mg Capsule] 7.5 mg PO QHS 11/09/16 Testosterone [Androderm] 1 each TD DAILY 11/09/16 Vitamin E (Dl, Acetate) [Vitamin E] 400 unit PO DAILY 11/09/16 Mometasone Furoate [Nasonex] 17 gm NS DAILY 11/10/16 Clindamycin HCl [Cleocin HCl] 300 mg PO TID #30 capsule 11/18/16 Hydrocortisone [Hydrocortisone 1% Cream 28.35 gm] 1 applic TP TIDP PRN tube 12/30 Oxycodone HCl/Acetaminophen [Percocet 5-325 mg Tablet] 1 tab PO Q6HP PRN #35 tablet 11/18/16 History of Present Illness Admission Date/PCP: 11/08/16 21:10 NAHOMY BERNSTEIN MD Patient complains of: Right lower extremity pain and swelling History of Present Illness: JODI VAN is a 71 year old male who presents to the emergency room with acute right leg injury at 2 PM today. The patient states he was working on his camper and tried to dislodge a tire and it came down on his right lower leg. Patient took two 325 mg aspirin noticed the swelling worsened. While in the emergency room swelling pain and blistering worsened. Current pain is 10/10. Has noticed numbness and tingling in his great toe. Denies history of other blood thinners. 71-year-old obese male, status post right leg fasciotomy for compartment syndrome, as noted above. Hospitalist service has been consulted to manage his medical problems, in particular his diabetes mellitus. Patient has been discussed with orthopedist who initially managed the patient. Laboratory results are listed in [employer] and are reviewed. X-ray summary results are listed below, with full report(s) reviewed. . Social history/personal habits: . Has children. Retired. No use tobacco or illicit drugs. Social alcohol intake. Allergies/adverse reactions NKDA. Home medications Home medications initially autopopulated into [employer] may not accurately reflect patient's true medications, dosages, and/or frequencies. REVIEW OF SYSTEMS: Constitutional: No fever or chills. Eyes: Wears glasses ENT: No swallowing problems or complaints. Partial hearing loss. Pulmonary: No current complaints. Cardiovascular: No current complaints, including chest pain. Gastrointestinal: No current complaints, including nausea or vomiting. Skin: No current complaints, including rashes. Hematologic: Easy bruising. Neurologic: No current complaints, including numbness or tingling. Musculoskeletal: See history and present illness. Joint pain from arthritis. Psychiatric: No current complaints, including anxiety or depression. Endocrine: No current complaints, including polyuria. Genitourinary: No current complaints, including dysuria. PHYSICAL EXAMINATION: 5 feet 7 inches tall. 111.7 kg. BMI 38.6 kg/m.Temperature 97.9. Pulse 97 regular. Blood pressure 152/54. Respirations are 15 and unlabored. 98% on room air, with nasal CPAP. Obese otherwise well-developed male. Pleasant awake alert and cooperative. Mildly anxious. No agitation. is present at his side; patient approves. Skin is warm and dry. No grossly obvious evidence of rash in areas of skin examined. No subcutaneous nodules palpated. ENT: Mildly hard of hearing to normal conversation. Tongue midline on protrusion pink and slightly tacky. Exam slightly limited by CPAP mask with attaching straps. Eyes: No scleral icterus. Pupils equal and reactive to light at 4 mm. Rake conjunctivae. No raccoon eyes. Neck is supple and nontender to gentle active range of motion and palpation. Midline trachea. No palpable thyroid nodule mass enlargement or tenderness. Lymphatic: No palpable cervical or clavicular nodes. Neck and lymphatic exams limited by patient body habitus. Psychiatric: Reasonable insight into acute and chronic medical issues. Oriented to time location and why here. Lungs: Auscultation reveals clear and equal breath sounds bilaterally. No use of accessory respiratory muscles. Cardiovascular: Heart regular rate and rhythm, without gallop murmur or rub. No abdominal aortic bruits. No left ankle or pedal edema. Faintly palpable left dorsalis pedis pulse. Difficult to evaluate for carotid bruit due to airway sounds from CPAP device. Right lower extremity exam deferred. Abdomen: soft, obese, nontender with positive bowel sounds. Unable to adequately evaluate abdomen for masses or organomegaly due to Body habitus. Extremities: Left foot warm and dry. No left calf tenderness to compression. No grossly obvious visual evidence of left calf swelling. Gentle manipulation of left lower extremity fails to reveal any obvious evidence of injury or instability to knee hip or ankle. Neurologic: Moves upper extremities grossly normally. Left Patellar reflex absent. Absent left Babinski. Light touch is intact at left foot. Dorsiflexion and plantarflexion of left foot 5 / 5. Hospital Course Hospital Course: Patient was admitted to the hospitalist service from the ED to telemetry unit. He was taken to the OR for fasciotomy of right lower extremity to relieve compartment syndrome. He had sliding scale insulin therapy in place. He had worsening of his CKD, due to volume loss and nephrotoxic medications. Medications were adjusted and he was hydrated until back to baseline creatinine of 1.03. He returned to the OR on 11/09 and 11/[address] So. The wound was able to be closed on 11/11. He was maintained on IV ancef due to risk of infection with his diabetes. Physical therapy was consulted. He was slow to progress. donor services team leader were consulted for discharge plan. Today he is ready for discharge. Antibiotics will be changed to Clindamyin tid for 10 days per ortho. Physical Exam Vital Signs: Temp Pulse Resp BP Pulse Ox 98.2 F 56 L 16 153/60 H 97 11/18/16 07:53 11/18/16 07:53 11/18/16 07:53 11/18/16 07:53 11/18/16 07:53 Pulse Oximeter Continuous Start: 11/10/16 18: 46 Freq: RTQ4 Status: Complete Document 11/12/16 04:00 [facility] (Rec: 11/12/16 06:04 [facility] [email or web address]) Pulse Oximetry Assessment Equipment Usage Equipment Standby Continuous SpO2 Machine # 3 Intake & Output 11/17/16 11/18/16 11/19/16 06:59 06:59 06:59 Intake Total 840 2600 Output Total 400 900 Balance 440 1700 General appearance: PRESENT: no acute distress, obese, well-developed, well- nourished Head exam: PRESENT: atraumatic, normocephalic Eye exam: PRESENT: conjunctiva pink, EOMI, PERRLA. ABSENT: scleral icterus Ear exam: PRESENT: normal external ear exam Mouth exam: PRESENT: moist, tongue midline Neck exam: ABSENT: carotid bruit, JVD, lymphadenopathy, thyromegaly Respiratory exam: PRESENT: clear to auscultation sb. ABSENT: rales, rhonchi, wheezes Cardiovascular exam: PRESENT: RRR. ABSENT: diastolic murmur, rubs, systolic murmur Pulses: PRESENT: normal carotid pulses, normal radial pulses, +1 pedal pulses bilateral Vascular exam: PRESENT: normal capillary refill GI/Abdominal exam: PRESENT: normal bowel sounds, soft. ABSENT: distended, guarding, mass, organolmegaly, rebound, tenderness Rectal exam: PRESENT: deferred Extremities exam: PRESENT: calf tenderness - right lower extremity, full ROM. ABSENT: clubbing, pedal edema Musculoskeletal exam: PRESENT: ambulatory Neurological exam: PRESENT: alert, awake, oriented to person, oriented to place , oriented to time, oriented to situation, CN II-XII grossly intact. ABSENT: motor sensory deficit Psychiatric exam: PRESENT: anxious Skin exam: PRESENT: dry, intact, warm, other - right lower extremity incision. Area of eschar as described by ortho notes. ABSENT: cyanosis, rash Results Laboratory Results: 11/16/16 05:35 11/16/16 05:35 11/10/16 04:27 Creatine Kinase 443 H Impressions: Tibia/Fibula X-Ray 11/08/16 15:33 IMPRESSION: NEGATIVE STUDY OF THE RIGHT TIBIA AND FIBULA. NO RADIOGRAPHIC EVIDENCE OF ACUTE INJURY. Transfer Plan - Disposition Transfer Plan: Transfer to [place] for further rehab and long-term - Time Spent with Patient Time spent with patient: Less than 30 Minutes
[2016-11-18] MEDS: OXYCODONE-ACETAMINOPHEN 5-325 MG TABLET PO PRN (13:54)
[2016-11-18 15:49] VITALS: BP 133/61
== END 2016-11-18 17:53 | DRG 909 ==
LOC: ER 15:19 → EH 19:10 → UNDOADMIN 19:10 → EH 19:16 → 5 21:50
PROVIDERS: ADMIT Orthopaedic Surgery; ATTEND Orthopaedic Surgery
PROC: 0KNS0ZZ Release Right Lower Leg Muscle, Open Approach (ICD-10-PCS; principal; 2016-11-08 19:30)
PROC: 0KBS0ZZ Excision of Right Lower Leg Muscle, Open Approach (ICD-10-PCS; 2016-11-10)
PROC: 0JCN0ZZ Extirpation of Matter from Right Lower Leg Subcutaneous Tissue and Fascia, Open Approach (ICD-10-PCS; 2016-11-10)
DX: T79.A21A Traumatic compartment syndrome of right lower extremity, initial encounter (principal); S80.821A Blister (nonthermal), right lower leg, initial encounter; S80.11XA Contusion of right lower leg, initial encounter; M79.661 Pain in right lower leg; E78.5 Hyperlipidemia, unspecified; I73.9 Peripheral vascular disease, unspecified; D50.0 Iron deficiency anemia secondary to blood loss (chronic); E10.22 Type 1 diabetes mellitus with diabetic chronic kidney disease; I12.9 Hypertensive chronic kidney disease with stage 1 through stage 4 chronic kidney disease, or unspecified chronic kidney disease; N18.3 Chronic kidney disease, stage 3 (moderate); E66.01 Morbid (severe) obesity due to excess calories; G47.33 Obstructive sleep apnea (adult) (pediatric); W22.8XXA Striking against or struck by other objects, initial encounter; Y93.89 Activity, other specified; Y92.89 Other specified places as the place of occurrence of the external cause; Z98.84 Bariatric surgery status; Z79.4 Long term (current) use of insulin; Z79.899 Other long term (current) drug therapy; Z68.39 Body mass index [BMI] 39.0-39.9, adult
CPT/HCPCS: 01470; 36415; 80048; 80053; 82550; 82962; 83036; 83735; 84100; 85025; 85027; 85610; 85730; 86850; 86900; 86901; 93005; 93010; 94660; 94762; 94799; 96374; 96375; 99291; G8978-GP; G8979-GP; J0131; J0330; J0360; J0690; J1644; J1815; J1885; J2250; J2270; J2405; J2704; J2765; J3010; J3490; J7030; J7120

== ENCOUNTER → 2017-05-17 | Outpatient (CLI) | payer MEDICARE, BC, OTHER ==
--- NOTE | 2017-05-17 12:26 | RADIOLOGY REPORT (SQ) ---
EXAM DESCRIPTION: U/S RETROPERITON (RENAL/AORTA) COMPLETED DATE/TIME: 05/17/2017 11:32 am REASON FOR STUDY: CKD III (N18.3) N18.3 CHRONIC KIDNEY DISEASE, STAGE 3 (MODERATE) E11.9 TYPE 2 DI ABETES MELLITUS WITHOUT COMPLICATIONS I12.9 HYPERTENSIVE CHRONIC KIDNEY DISEASE W STG 1-4/UNSP CHR COMPARISON: None. TECHNIQUE: Dynamic and static grayscale images acquired of the kidneys and bladder and recorded on P ACS. Additional selected color Doppler and spectral images recorded. LIMITATIONS: Overlying bowel gas. FINDINGS: Right kidney measures about 11 cm and the left kidney measures about 12 cm. Cortical thin ashleigh bilaterally. No hydronephrosis. Urinary bladder is not imaged. IMPRESSION: CHRONIC MEDICAL RENAL DISEASE. NO HYDRONEPHROSIS. TECHNICAL DOCUMENTATION: JOB ID: [id number] [employer]- All Rights Reserved
== END ==
LOC: RAD 10:28
PROVIDERS: ATTEND Internal Medicine Nephrology
DX: I12.9 Hypertensive chronic kidney disease with stage 1 through stage 4 chronic kidney disease, or unspecified chronic kidney disease (principal); N18.3 Chronic kidney disease, stage 3 (moderate); E11.9 Type 2 diabetes mellitus without complications
CPT/HCPCS: 76770

== ENCOUNTER → 2017-09-10 | Outpatient (CLI) | payer MEDICARE, BC, OTHER ==
[2017-09-10 09:11] LABS: HEMATOCRIT 40.1 % (37.9-51.0); HEMOGLOBIN 13.8 g/dL (13.5-17.0); MEAN CORPUSCULAR HEMOGLOBIN 32.3 pg (27.0-33.4); MEAN CORPUSCULAR HGB CONC 34.4 g/dL (32.0-36.0); MEAN CORPUSCULAR VOLUME 94 fl (80-97); PLATELET COUNT 158 10^3/uL (150-450); RED BLOOD COUNT 4.27 10^6/uL (4.35-5.55); RED CELL DISTRIBUTION WIDTH 13.3 % (11.5-14.0); WHITE BLOOD COUNT 6.8 10^3/uL (4.0-10.5)
[2017-09-10 09:18] LABS: APPEARANCE,URINE CLEAR; BILIRUBIN,URINE NEGATIVE (NEGATIVE); COLOR,URINE YELLOW; GLUCOSE, URINE 50 mg/dL (NEGATIVE); KETONES,URINE NEGATIVE (NEGATIVE); LEUKOCYTE ESTERASE,URINE NEGATIVE (NEGATIVE); NITRITE,URINE NEGATIVE (NEGATIVE); PROTEIN,URINE 100 mg/dL (NEGATIVE); URINE SPECIFIC GRAVITY 1.014; UROBILINOGEN,URINE NEGATIVE mg/dL (<2.0)
[2017-09-10 09:42] LABS: ANION GAP 7 (5-19); BLOOD UREA NITROGEN 31 mg/dL (7-20); CALCIUM 9.7 mg/dL (8.4-10.2); CARBON DIOXIDE 27 mmol/L (22-30); CHLORIDE 107 mmol/L (98-107); GLUCOSE 159 mg/dL (75-110); POTASSIUM 4.2 mmol/L (3.6-5.0); SODIUM 141.1 mmol/L (137-145)
[2017-09-10 09:48] LABS: UR PRO/CREAT RATIO RESULT 1.6 mg/mg (0.0-0.2); URINE CREATININE 94.6 mg/dL (22-328)
== END ==
LOC: OD 08:06
PROVIDERS: ATTEND Internal Medicine Nephrology
DX: E11.22 Type 2 diabetes mellitus with diabetic chronic kidney disease (principal); I12.9 Hypertensive chronic kidney disease with stage 1 through stage 4 chronic kidney disease, or unspecified chronic kidney disease; N18.3 Chronic kidney disease, stage 3 (moderate); R80.9 Proteinuria, unspecified
CPT/HCPCS: 36415; 80048; 81001; 82570; 84156; 85027

== ENCOUNTER → 2018-01-07 | Outpatient (CLI) | payer MEDICARE, BC, OTHER ==
[2018-01-07 10:13] LABS: HEMATOCRIT 38.1 % (37.9-51.0); HEMOGLOBIN 13.2 g/dL (13.5-17.0); MEAN CORPUSCULAR HEMOGLOBIN 32.4 pg (27.0-33.4); MEAN CORPUSCULAR HGB CONC 34.6 g/dL (32.0-36.0); MEAN CORPUSCULAR VOLUME 94 fl (80-97); PLATELET COUNT 153 10^3/uL (150-450); RED BLOOD COUNT 4.07 10^6/uL (4.35-5.55); RED CELL DISTRIBUTION WIDTH 12.7 % (11.5-14.0); WHITE BLOOD COUNT 8.6 10^3/uL (4.0-10.5)
[2018-01-07 10:19] LABS: APPEARANCE,URINE CLEAR; BILIRUBIN,URINE NEGATIVE (NEGATIVE); COLOR,URINE YELLOW; GLUCOSE, URINE 150 mg/dL (NEGATIVE); KETONES,URINE NEGATIVE (NEGATIVE); LEUKOCYTE ESTERASE,URINE NEGATIVE (NEGATIVE); NITRITE,URINE NEGATIVE (NEGATIVE); PROTEIN,URINE 100 mg/dL (NEGATIVE); URINE SPECIFIC GRAVITY 1.017; UROBILINOGEN,URINE NEGATIVE mg/dL (<2.0)
[2018-01-07 10:33] LABS: ANION GAP 11 (5-19); BLOOD UREA NITROGEN 36 mg/dL (7-20); CALCIUM 9.4 mg/dL (8.4-10.2); CARBON DIOXIDE 26 mmol/L (22-30); CHLORIDE 106 mmol/L (98-107); GLUCOSE 256 mg/dL (75-110); POTASSIUM 3.8 mmol/L (3.6-5.0)
[2018-01-07 10:38] LABS: UR PRO/CREAT RATIO RESULT 1.1 mg/mg (0.0-0.2); URINE CREATININE 101.2 mg/dL (22-328); URINE PROTEIN 115.4 mg/dL (<12)
== END ==
LOC: OD 09:36
PROVIDERS: ATTEND Internal Medicine Nephrology
DX: I12.9 Hypertensive chronic kidney disease with stage 1 through stage 4 chronic kidney disease, or unspecified chronic kidney disease (principal); N18.3 Chronic kidney disease, stage 3 (moderate); R80.9 Proteinuria, unspecified; E11.9 Type 2 diabetes mellitus without complications
CPT/HCPCS: 36415; 80048; 81001; 82570; 84156; 85027

== ENCOUNTER → 2018-05-16 | Outpatient (CLI) | payer MEDICARE, BC, OTHER ==
[2018-05-16 12:50] LABS: HEMATOCRIT 40.8 % (37.9-51.0); MEAN CORPUSCULAR HGB CONC 34.4 g/dL (32.0-36.0); MEAN CORPUSCULAR VOLUME 93 fl (80-97); PLATELET COUNT 178 10^3/uL (150-450); RED BLOOD COUNT 4.39 10^6/uL (4.35-5.55); RED CELL DISTRIBUTION WIDTH 12.9 % (11.5-14.0); WHITE BLOOD COUNT 7.7 10^3/uL (4.0-10.5)
[2018-05-16 13:03] LABS: APPEARANCE,URINE CLEAR; BILIRUBIN,URINE NEGATIVE (NEGATIVE); COLOR,URINE STRAW; GLUCOSE, URINE 50 mg/dL (NEGATIVE); KETONES,URINE NEGATIVE (NEGATIVE); LEUKOCYTE ESTERASE,URINE NEGATIVE (NEGATIVE); NITRITE,URINE NEGATIVE (NEGATIVE); PROTEIN,URINE 30 mg/dL (NEGATIVE); URINE SPECIFIC GRAVITY 1.009; UROBILINOGEN,URINE NEGATIVE mg/dL (<2.0)
[2018-05-16 13:15] LABS: ANION GAP 9 (5-19); BLOOD UREA NITROGEN 37 mg/dL (7-20); CALCIUM 9.4 mg/dL (8.4-10.2); CARBON DIOXIDE 28 mmol/L (22-30); CHLORIDE 105 mmol/L (98-107); GLUCOSE 193 mg/dL (75-110); POTASSIUM 4.2 mmol/L (3.6-5.0); SODIUM 141.8 mmol/L (137-145)
[2018-05-16 13:24] LABS: UR PRO/CREAT RATIO RESULT 2.2 mg/mg (0.0-0.2); URINE CREATININE 30.8 mg/dL (22-328); URINE PROTEIN 68.2 mg/dL (<12)
== END ==
LOC: OD 12:09
PROVIDERS: ATTEND Physician Assistant Medical
DX: I12.9 Hypertensive chronic kidney disease with stage 1 through stage 4 chronic kidney disease, or unspecified chronic kidney disease (principal); N18.3 Chronic kidney disease, stage 3 (moderate); E11.22 Type 2 diabetes mellitus with diabetic chronic kidney disease; R80.9 Proteinuria, unspecified
CPT/HCPCS: 36415; 80048; 81001; 82570; 84156; 85027

== ENCOUNTER → 2018-11-02 | Outpatient (CLI) | payer MEDICARE, BC, OTHER ==
[2018-11-02 13:04] LABS: APPEARANCE,URINE CLEAR; BILIRUBIN,URINE NEGATIVE (NEGATIVE); COLOR,URINE STRAW; GLUCOSE, URINE 50 mg/dL (NEGATIVE); KETONES,URINE NEGATIVE (NEGATIVE); LEUKOCYTE ESTERASE,URINE NEGATIVE (NEGATIVE); NITRITE,URINE NEGATIVE (NEGATIVE); PROTEIN,URINE 100 mg/dL (NEGATIVE); URINE SPECIFIC GRAVITY 1.009; UROBILINOGEN,URINE NEGATIVE mg/dL (<2.0)
[2018-11-02 13:08] LABS: HEMOGLOBIN 13.5 g/dL (13.5-17.0); MEAN CORPUSCULAR HEMOGLOBIN 32.4 pg (27.0-33.4); MEAN CORPUSCULAR HGB CONC 34.5 g/dL (32.0-36.0); MEAN CORPUSCULAR VOLUME 94 fl (80-97); PLATELET COUNT 168 10^3/uL (150-450); RED BLOOD COUNT 4.16 10^6/uL (4.35-5.55); RED CELL DISTRIBUTION WIDTH 13.3 % (11.5-14.0); WHITE BLOOD COUNT 7.9 10^3/uL (4.0-10.5)
[2018-11-02 13:15] LABS: UR PRO/CREAT RATIO RESULT 4.4 mg/mg (0.0-0.2); URINE CREATININE 24.4 mg/dL (22-328); URINE PROTEIN 107.3 mg/dL (<12)
[2018-11-02 13:27] LABS: ANION GAP 8 (5-19); BLOOD UREA NITROGEN 35 mg/dL (7-20); CALCIUM 9.3 mg/dL (8.4-10.2); CARBON DIOXIDE 27 mmol/L (22-30); CHLORIDE 107 mmol/L (98-107); GLUCOSE 157 mg/dL (75-110); POTASSIUM 3.9 mmol/L (3.6-5.0); SODIUM 142.1 mmol/L (137-145)
== END ==
LOC: OD 12:33
PROVIDERS: ATTEND Physician Assistant Medical
DX: I12.9 Hypertensive chronic kidney disease with stage 1 through stage 4 chronic kidney disease, or unspecified chronic kidney disease (principal); N18.3 Chronic kidney disease, stage 3 (moderate); E11.22 Type 2 diabetes mellitus with diabetic chronic kidney disease; R80.9 Proteinuria, unspecified
CPT/HCPCS: 36415; 80048; 81001; 82570; 84156; 85027

== ENCOUNTER → 2019-03-08 | Outpatient (CLI) | payer MEDICARE, BC, OTHER ==
[2019-03-08 12:25] LABS: HEMATOCRIT 38.9 % (37.9-51.0); HEMOGLOBIN 13.4 g/dL (13.5-17.0); MEAN CORPUSCULAR HGB CONC 34.4 g/dL (32.0-36.0); MEAN CORPUSCULAR VOLUME 93 fl (80-97); PLATELET COUNT 163 10^3/uL (150-450); RED BLOOD COUNT 4.17 10^6/uL (4.35-5.55); RED CELL DISTRIBUTION WIDTH 13.1 % (11.5-14.0); WHITE BLOOD COUNT 6.9 10^3/uL (4.0-10.5)
[2019-03-08 12:42] LABS: ANION GAP 6 (5-19); BLOOD UREA NITROGEN 37 mg/dL (7-20); CALCIUM 8.7 mg/dL (8.4-10.2); CARBON DIOXIDE 28 mmol/L (22-30); CHLORIDE 107 mmol/L (98-107); GLUCOSE 109 mg/dL (75-110); PHOSPHORUS 3.5 mg/dL (2.5-4.5); POTASSIUM 4.5 mmol/L (3.6-5.0)
[2019-03-08 13:00] LABS: URINE CREATININE 112.1 mg/dL (22-328)
[2019-03-08 14:01] LABS: UR PRO/CREAT RATIO RESULT 6.4 mg/mg (0.0-0.2); URINE PROTEIN 721.5 mg/dL (<12)
== END ==
LOC: OD 11:46
PROVIDERS: ATTEND Physician Assistant Medical
DX: I12.9 Hypertensive chronic kidney disease with stage 1 through stage 4 chronic kidney disease, or unspecified chronic kidney disease (principal); N18.3 Chronic kidney disease, stage 3 (moderate); E11.22 Type 2 diabetes mellitus with diabetic chronic kidney disease; R80.9 Proteinuria, unspecified
CPT/HCPCS: 36415; 80048; 82570; 83970; 84100; 84156; 85027

== ENCOUNTER → 2019-03-22 | Outpatient (CLI) | payer MEDICARE, BC, OTHER ==
--- NOTE | 2019-03-23 12:19 | XCELERA REPORT ---
[address] [address] Lower Extremity Venous Evaluation Procedure: A bilateral duplex scan of the lower extremity veins was performed. The evaluation included responses to compression and other maneuvers with patient in the supine and standing positions to assess venous insufficiency. Right Sided Venous Evaluation Deep venous system evaluatiion shows patent veins with no obstruction or significant reflux identified. Sapheno Femoral junction: no reflux. Femoral vein reflux: no reflux. Greater Saphenous vein, Proximal thigh: reflux: no reflux. Greater Saphenous vein, Distal thigh: reflux: no reflux. Greater Saphenous vein, Proximal below knee: reflux: no reflux. No significant Perforators identified. Left Sided Venous Evaluation Deep venous system evaluatiion shows patent veins with no obstruction or significant reflux identified. Sapheno Femoral junction: no reflux. Femoral vein reflux: no reflux. Greater Saphenous vein, Proximal thigh: reflux: no reflux. Greater Saphenous vein, Distal thigh: reflux: no reflux. Greater Saphenous vein, Proximal below knee: reflux: no reflux. No significant Perforators identified. Interpretation Summary No duplex evidence of DVT or obstruction in the bilateral lower extremities. No deep or superficial reflux identified on either side. Name: JODI VAN Age: 73 yrs Gender: Male : 1945 Patient Status: Outpatient Patient Location: [facility] Study Date: 03/22/2019 10:50 AM Reason For Study: RT CALF ULCER Ordering Physician: SHOSHANA PIMENTEL Performed By: Faheem Corbin : SHOSHANA PIMENTEL > Shoshana Pimentel
--- NOTE | 2019-03-26 12:09 | XCELERA REPORT ---
[address] [address] Lower Extremity Arterial Evaluation Name: JODI VAN Age: 73 yrs Gender: Male : 1945 Patient Status: Outpatient Patient Location: Study Date: 03/22/2019 10:19 AM Procedure: A color flow and duplex scan of the lower extremity arteries was performed bilaterally with velocity and waveform anaylsis. Ankle brachial indicies performed. 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 Biphasic with low velocity, moderate spectral broadening in the infrageniculate vessels arteries. Reversal of flow in the Posterior Tibial. Ankle Brachial index 1.13. Left Side Arterial Evaluation Normal velocity and triphasic waveforms noted from the Common Femoral artery to the Popliteal artery . Biphasic with low velocity, moderate spectral broadening in the infrageniculate vessels arteries. Reversal of flow in the Anterior Tibial. Ankle Brachial index 1.06. Interpretation Summary Moderate hemodynamically significant lesions in the bilateral lower extremities, on duplex imaging, at rest. Duplex findings indicate significant compromise at the infrageniculate level, bilaterally, with no focal lesions noted. The YAMINI's are normal, suggesting no significant arterial compromise. This is discordant with the Duplex findings, clinical correlation recommended. : SHOSHANA PIMENTEL > Shoshana Pimentel
== END ==
LOC: SP 09:49
PROVIDERS: ATTEND Surgery
DX: L97.211 Non-pressure chronic ulcer of right calf limited to breakdown of skin (principal)
CPT/HCPCS: 93922; 93925; 93970

== ENCOUNTER → 2019-06-01 | Outpatient (CLI) | payer MEDICARE, BC, OTHER ==
[2019-06-01 12:19] LABS: ABSOLUTE EOSINOPHILS # (AUTO) 0.1 10^3/uL (0.0-0.6); ABSOLUTE LYMPHOCYTES (AUTO) 0.9 10^3/uL (0.5-4.7); ABSOLUTE MONOCYTES (AUTO) 0.5 10^3/uL (0.1-1.4); ABSOLUTE NEUT (AUTO) 3.8 10^3/uL (1.7-8.2); BASOPHILS % (AUTO) 0.8 % (0-2); EOSINOPHILS % (AUTO) 1.9 % (0-6); HEMATOCRIT 37.3 % (37.9-51.0); HEMOGLOBIN 12.6 g/dL (13.5-17.0); LYMPHOCYTES % (AUTO) 17.1 % (13-45); MEAN CORPUSCULAR HGB CONC 33.8 g/dL (32.0-36.0); MEAN CORPUSCULAR VOLUME 95 fl (80-97); MONOCYTES % (AUTO) 9.7 % (3-13); PLATELET COUNT 158 10^3/uL (150-450); RED BLOOD COUNT 3.94 10^6/uL (4.35-5.55); RED CELL DISTRIBUTION WIDTH 13.2 % (11.5-14.0); SEGMENTED NEUTROPHILS % (AUTO) 70.5 % (42-78); TOTAL CELLS COUNTED % (AUTO) 100 %; WHITE BLOOD COUNT 5.4 10^3/uL (4.0-10.5)
[2019-06-01 12:45] LABS: ALBUMIN 3.1 g/dL (3.5-5.0); ANION GAP 7 (5-19); BLOOD UREA NITROGEN 39 mg/dL (7-20); CALCIUM 8.8 mg/dL (8.4-10.2); CARBON DIOXIDE 25 mmol/L (22-30); CHLORIDE 105 mmol/L (98-107); GLUCOSE 241 mg/dL (75-110); POTASSIUM 4.5 mmol/L (3.6-5.0)
[2019-06-01 12:50] LABS: URINE CREATININE 112.6 mg/dL (22-328)
[2019-06-01 14:40] LABS: UR PRO/CREAT RATIO RESULT 5.3 mg/mg (0.0-0.2); URINE PROTEIN 597.9 mg/dL (<12)
== END ==
LOC: OD 11:39
PROVIDERS: ATTEND Physician Assistant Medical
DX: E11.22 Type 2 diabetes mellitus with diabetic chronic kidney disease (principal); I12.9 Hypertensive chronic kidney disease with stage 1 through stage 4 chronic kidney disease, or unspecified chronic kidney disease; N18.3 Chronic kidney disease, stage 3 (moderate); R80.9 Proteinuria, unspecified; R60.9 Edema, unspecified
CPT/HCPCS: 36415; 80048; 82040; 82570; 84156; 85025

== ENCOUNTER → 2019-07-19 | Outpatient (CLI) | payer MEDICARE, BC, OTHER ==
[2019-07-19 14:08] LABS: ABSOLUTE EOSINOPHILS # (AUTO) 0.1 10^3/uL (0.0-0.6); ABSOLUTE LYMPHOCYTES (AUTO) 1.6 10^3/uL (0.5-4.7); ABSOLUTE NEUT (AUTO) 5.1 10^3/uL (1.7-8.2); BASOPHILS % (AUTO) 0.6 % (0-2); EOSINOPHILS % (AUTO) 1.7 % (0-6); HEMATOCRIT 38.3 % (37.9-51.0); HEMOGLOBIN 13.3 g/dL (13.5-17.0); LYMPHOCYTES % (AUTO) 20.3 % (13-45); MEAN CORPUSCULAR HEMOGLOBIN 32.5 pg (27.0-33.4); MEAN CORPUSCULAR HGB CONC 34.8 g/dL (32.0-36.0); MEAN CORPUSCULAR VOLUME 94 fl (80-97); MONOCYTES % (AUTO) 12.2 % (3-13); PLATELET COUNT 163 10^3/uL (150-450); RED BLOOD COUNT 4.09 10^6/uL (4.35-5.55); RED CELL DISTRIBUTION WIDTH 13.5 % (11.5-14.0); SEGMENTED NEUTROPHILS % (AUTO) 65.2 % (42-78); TOTAL CELLS COUNTED % (AUTO) 100 %; WHITE BLOOD COUNT 7.8 10^3/uL (4.0-10.5)
[2019-07-19 14:30] LABS: ANION GAP 8 (5-19); BLOOD UREA NITROGEN 46 mg/dL (7-20); CALCIUM 9.6 mg/dL (8.4-10.2); CARBON DIOXIDE 27 mmol/L (22-30); CHLORIDE 106 mmol/L (98-107); GLUCOSE 153 mg/dL (75-110); PHOSPHORUS 4.5 mg/dL (2.5-4.5); POTASSIUM 4.5 mmol/L (3.6-5.0)
[2019-07-19 14:43] LABS: UR PRO/CREAT RATIO RESULT 3.9 mg/mg (0.0-0.2); URINE CREATININE 42.7 mg/dL (22-328); URINE PROTEIN 164.7 mg/dL (<12)
== END ==
LOC: OD 13:31
PROVIDERS: ATTEND Physician Assistant Medical
DX: E11.22 Type 2 diabetes mellitus with diabetic chronic kidney disease (principal); I12.9 Hypertensive chronic kidney disease with stage 1 through stage 4 chronic kidney disease, or unspecified chronic kidney disease; N18.3 Chronic kidney disease, stage 3 (moderate); R60.9 Edema, unspecified; R80.9 Proteinuria, unspecified
CPT/HCPCS: 36415; 80048; 82570; 83970; 84100; 84156; 85025

== ENCOUNTER → 2019-09-12 | Outpatient (CLI) | payer MEDICARE, BC, OTHER ==
[2019-09-12 12:18] LABS: ABSOLUTE EOSINOPHILS # (AUTO) 0.1 10^3/uL (0.0-0.6); ABSOLUTE LYMPHOCYTES (AUTO) 0.9 10^3/uL (0.5-4.7); ABSOLUTE MONOCYTES (AUTO) 0.5 10^3/uL (0.1-1.4); ABSOLUTE NEUT (AUTO) 4.5 10^3/uL (1.7-8.2); BASOPHILS % (AUTO) 0.5 % (0-2); EOSINOPHILS % (AUTO) 1.9 % (0-6); HEMOGLOBIN 13.1 g/dL (13.5-17.0); LYMPHOCYTES % (AUTO) 14.8 % (13-45); MEAN CORPUSCULAR HEMOGLOBIN 33.2 pg (27.0-33.4); MEAN CORPUSCULAR HGB CONC 35.5 g/dL (32.0-36.0); MEAN CORPUSCULAR VOLUME 93 fl (80-97); MONOCYTES % (AUTO) 8.6 % (3-13); PLATELET COUNT 143 10^3/uL (150-450); RED BLOOD COUNT 3.96 10^6/uL (4.35-5.55); RED CELL DISTRIBUTION WIDTH 13.4 % (11.5-14.0); SEGMENTED NEUTROPHILS % (AUTO) 74.2 % (42-78); TOTAL CELLS COUNTED % (AUTO) 100 %
[2019-09-12 12:25] LABS: ALBUMIN 3.2 g/dL (3.5-5.0); ANION GAP 7 (5-19); BLOOD UREA NITROGEN 45 mg/dL (7-20); CALCIUM 8.7 mg/dL (8.4-10.2); CARBON DIOXIDE 27 mmol/L (22-30); CHLORIDE 104 mmol/L (98-107); GLUCOSE 189 mg/dL (75-110); PHOSPHORUS 3.5 mg/dL (2.5-4.5); POTASSIUM 4.5 mmol/L (3.6-5.0)
[2019-09-12 12:49] LABS: APPEARANCE,URINE CLEAR; BILIRUBIN,URINE NEGATIVE (NEGATIVE); COLOR,URINE YELLOW; GLUCOSE, URINE 50 mg/dL (NEGATIVE); KETONES,URINE NEGATIVE (NEGATIVE); LEUKOCYTE ESTERASE,URINE NEGATIVE (NEGATIVE); NITRITE,URINE NEGATIVE (NEGATIVE); PROTEIN,URINE >=500 mg/dL (NEGATIVE); URINE SPECIFIC GRAVITY 1.015; UROBILINOGEN,URINE NEGATIVE mg/dL (<2.0)
[2019-09-12 13:06] LABS: URINE CREATININE 100.4 mg/dL (22-328)
[2019-09-12 13:18] LABS: UR PRO/CREAT RATIO RESULT 3.7 mg/mg (0.0-0.2); URINE PROTEIN 374.2 mg/dL (<12)
== END ==
LOC: OD 11:36
PROVIDERS: ATTEND Physician Assistant Medical
DX: E11.22 Type 2 diabetes mellitus with diabetic chronic kidney disease (principal); I12.9 Hypertensive chronic kidney disease with stage 1 through stage 4 chronic kidney disease, or unspecified chronic kidney disease; N18.3 Chronic kidney disease, stage 3 (moderate); R60.9 Edema, unspecified; R80.9 Proteinuria, unspecified; N25.0 Renal osteodystrophy
CPT/HCPCS: 36415; 80069; 81001; 82570; 83970; 84156; 85025

== ENCOUNTER → 2020-05-07 | Outpatient (CLI) | payer MEDICARE, BC, OTHER ==
[2020-05-07 11:27] LABS: ABSOLUTE EOSINOPHILS # (AUTO) 0.1 10^3/uL (0.0-0.6); ABSOLUTE LYMPHOCYTES (AUTO) 1.2 10^3/uL (0.5-4.7); ABSOLUTE MONOCYTES (AUTO) 0.9 10^3/uL (0.1-1.4); ABSOLUTE NEUT (AUTO) 6.6 10^3/uL (1.7-8.2); BASOPHILS % (AUTO) 0.4 % (0-2); EOSINOPHILS % (AUTO) 1.5 % (0-6); HEMATOCRIT 32.6 % (37.9-51.0); HEMOGLOBIN 11.2 g/dL (13.5-17.0); LYMPHOCYTES % (AUTO) 13.6 % (13-45); MEAN CORPUSCULAR HEMOGLOBIN 32.1 pg (27.0-33.4); MEAN CORPUSCULAR HGB CONC 34.4 g/dL (32.0-36.0); MEAN CORPUSCULAR VOLUME 93 fl (80-97); MONOCYTES % (AUTO) 9.8 % (3-13); PLATELET COUNT 198 10^3/uL (150-450); RED CELL DISTRIBUTION WIDTH 13.3 % (11.5-14.0); SEGMENTED NEUTROPHILS % (AUTO) 74.7 % (42-78); TOTAL CELLS COUNTED % (AUTO) 100 %; WHITE BLOOD COUNT 8.8 10^3/uL (4.0-10.5)
[2020-05-07 12:02] LABS: ALBUMIN 3.3 g/dL (3.5-5.0); ALKALINE PHOSPHATASE 90 U/L (38-126); ANION GAP 6 (5-19); ASPARTATE AMINO TRANSFERASE 18 U/L (17-59); BILIRUBIN,DIRECT 0.3 mg/dL (0.0-0.4); BILIRUBIN,TOTAL 0.5 mg/dL (0.2-1.3); BLOOD UREA NITROGEN 44 mg/dL (7-20); C-REACTIVE PROTEIN 13.8 mg/L (<10.0); CALCIUM 9.4 mg/dL (8.4-10.2); CARBON DIOXIDE 29 mmol/L (22-30); CHLORIDE 107 mmol/L (98-107); GLUCOSE 105 mg/dL (75-110); POTASSIUM 4.7 mmol/L (3.6-5.0); TOTAL PROTEIN 5.6 g/dL (6.3-8.2)
[2020-05-07 12:09] LABS: ERYTHROCYTE SEDIMENTATION RATE 66 mm/hr (0-20)
== END ==
LOC: WC 10:33
PROVIDERS: ATTEND Nurse Practitioner Family
DX: E11.621 Type 2 diabetes mellitus with foot ulcer (principal); L97.212 Non-pressure chronic ulcer of right calf with fat layer exposed
CPT/HCPCS: 36415; 80053; 83036; 85025; 85652; 86140

== ENCOUNTER → 2020-05-21 | Outpatient (CLI) | payer MEDICARE, BC, OTHER ==
--- NOTE | 2020-05-21 15:49 | RADIOLOGY REPORT (SQ) ---
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 TECHNIQUE: Dynamic and static mcdowell scale and color images acquired of the lower extremity arteries. Additional selected spectral images recorded. ABIs recorded. LIMITATIONS: None. FINDINGS: RIGHT LEG: ABIS: Unable to detect. INFLOW ARTERIES: Normal, no obstruction evident. FEMORAL ARTERIES:Triphasic waveforms. Normal, no velocity elevation to suggest focal stenosis. Normal color Doppler evaluation. No aneurysm. POPLITEAL ARTERY:Triphasic waveforms. Normal, no velocity elevation to suggest focal stenosis. Normal color Doppler evaluation. No aneurysm. PATENT TIBIOPERONEAL TRUNK AND 3 VESSEL RUNOFF: Patent posterior tibial artery. Occluded mid anterio r tibial artery with retrograde flow distally. Retrograde flow in the distal dorsalis pedis artery. TBI: Not performed. OTHER: No other significant finding. LEFT LEG: ABIS: Normal, over 1.0. INFLOW ARTERIES: Normal, no obstruction evident. FEMORAL ARTERIES:Triphasic waveforms. Normal, no velocity elevation to suggest focal stenosis. Normal color Doppler evaluation. No aneurysm. POPLITEAL ARTERY:Triphasic waveforms. Normal, no velocity elevation to suggest focal stenosis. Normal color Doppler evaluation. No aneurysm. PATENT TIBIOPERONEAL TRUNK AND 3 VESSEL RUNOFF: Patent posterior tibial artery. Occluded mid anterio r tibial artery with reconstitution distally. Retrograde flow in the distal dorsalis pedis artery. TBI: Not performed. OTHER: No other significant finding. IMPRESSION: NO OCCLUSION OR SIGNIFICANT STENOSIS IN THE MAJOR VESSELS OF THE LOWER EXTREMITIES. THE RE IS SMALL VESSEL DISEASE IN THE CALVES WITH OCCLUSIONS AND RETROGRADE FLOW DESCRIBED. UNABLE TO DETECT THE ANKLE-BRACHIAL INDEX IN THE RIGHT LOWER EXTREMITY. ANKLE-BRACHIAL INDICES IN THE LEFT LO WER EXTREMITY ARE NORMAL. COMMENT: [facility] NORMAL: Greater than 1.0 MINIMAL DISEASE: 0.9 to 1.0 CLAUDICATION: 0.5 to 0.9 SEVERE ARTERIAL DISEASE: Less than 0.5 [facility] NORM[facility]: Greater than 1.0 (1.2 If Heavy Calcifications) NORMAL TO MILD ISCHEMIA: 0.8 to 1.0 MODERATE ISCHEMIA: 0.4 to 0.8 SEVERE ISCHEMIA: Less than 0.4 TECHNICAL DOCUMENTATION: JOB ID: [id number] 2011 [employer]- All Rights Reserved Reading location - IP/workstation name: [email or web address]
--- NOTE | 2020-05-21 15:49 | RADIOLOGY REPORT (SQ) ---
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 TECHNIQUE: Dynamic and static mcdowell scale and color images acquired of the lower extremity arteries. Additional selected spectral images recorded. ABIs recorded. LIMITATIONS: None. FINDINGS: RIGHT LEG: ABIS: Unable to detect. INFLOW ARTERIES: Normal, no obstruction evident. FEMORAL ARTERIES:Triphasic waveforms. Normal, no velocity elevation to suggest focal stenosis. Normal color Doppler evaluation. No aneurysm. POPLITEAL ARTERY:Triphasic waveforms. Normal, no velocity elevation to suggest focal stenosis. Normal color Doppler evaluation. No aneurysm. PATENT TIBIOPERONEAL TRUNK AND 3 VESSEL RUNOFF: Patent posterior tibial artery. Occluded mid anterio r tibial artery with retrograde flow distally. Retrograde flow in the distal dorsalis pedis artery. TBI: Not performed. OTHER: No other significant finding. LEFT LEG: ABIS: Normal, over 1.0. INFLOW ARTERIES: Normal, no obstruction evident. FEMORAL ARTERIES:Triphasic waveforms. Normal, no velocity elevation to suggest focal stenosis. Normal color Doppler evaluation. No aneurysm. POPLITEAL ARTERY:Triphasic waveforms. Normal, no velocity elevation to suggest focal stenosis. Normal color Doppler evaluation. No aneurysm. PATENT TIBIOPERONEAL TRUNK AND 3 VESSEL RUNOFF: Patent posterior tibial artery. Occluded mid anterio r tibial artery with reconstitution distally. Retrograde flow in the distal dorsalis pedis artery. TBI: Not performed. OTHER: No other significant finding. IMPRESSION: NO OCCLUSION OR SIGNIFICANT STENOSIS IN THE MAJOR VESSELS OF THE LOWER EXTREMITIES. THE RE IS SMALL VESSEL DISEASE IN THE CALVES WITH OCCLUSIONS AND RETROGRADE FLOW DESCRIBED. UNABLE TO DETECT THE ANKLE-BRACHIAL INDEX IN THE RIGHT LOWER EXTREMITY. ANKLE-BRACHIAL INDICES IN THE LEFT LO WER EXTREMITY ARE NORMAL. COMMENT: [facility] NORMAL: Greater than 1.0 MINIMAL DISEASE: 0.9 to 1.0 CLAUDICATION: 0.5 to 0.9 SEVERE ARTERIAL DISEASE: Less than 0.5 [facility] NORMAL: Greater than 1.0 (1.2 If Heavy Calcifications) NORMAL TO MILD ISCHEMIA: 0.8 to 1.0 MODERATE ISCHEMIA: 0.4 to 0.8 SEVERE ISCHEMIA: Less than 0.4 TECHNICAL DOCUMENTATION: JOB ID: [id number] 2011 [employer]- All Rights Reserved Reading location - IP/workstation name: [email or web address]
== END ==
LOC: SP 08:46
PROVIDERS: ATTEND Nurse Practitioner Family
DX: L97.212 Non-pressure chronic ulcer of right calf with fat layer exposed (principal)
CPT/HCPCS: 93922; 93925